=== PATIENT | female | born 1955 | race Caucasian/White ===

== ENCOUNTER → 2016-11-16 | Day surgery (SDC) | payer SELFPAY ==
[2016-11-08 14:37] VITALS: Ht 160 cm; Wt 81.8 kg
[~2016-11-16] VITALS: Ht 160 cm; Wt 81.8 kg
[~2016-11-16] MED LIST: ACYC400T PO; AMOX875T PO; ASCA500 PO; ATV/1 PO; DEXL60CA4 PO; HYDR25TA4 PO; LIDOCAINE HCL 2% 2 ML VIAL (20MG/ML) ONE; MECL1TAB42 PO; MIRT30TA2 PO; ONDA4TAB10 SL; PANT40TA PO; PROPOFOL IV EMULSION 10 MG/ML 20 ML VIAL IV ONE; SODIUM CHLORIDE 0.9% 500ML 500 ML IV ONE; WHEAPOW PO
--- NOTE | 2016-11-16 09:11 | Endo History and Physical ---
History & Physical Date of Service: November 16, 2016. Chief Complaint: HISTORY OF COLON CANCER, 1YR FOLLOW UP Referring Physician: DR DICKSON History of Present Illness 61 yo CF who presents for colonoscopy secondary to history of colon cancer. Past Surgical History Hx Cardiac Surgery: No Hx Internal Defibrillator: No Hx Pacemaker: No Hx Abdominal Surgery: Yes ( X2) Hx of Implantable Prosthesis: No Hx Post-Op Nausea and Vomiting: No Hx Cancer Surgery: Yes (COLON RESECTION) Hx Thoracic Surgery: No Hx Orthopedic: No Hx Urinary Tract Surgery: No Family History None Social History Smoking Status: Never Smoker Hx Substance Use: No Hx Alcohol Use: No Allergies Coded Allergies: Latex1 -Allergic Contact Dermititis (Verified Allergy, Mild, RASH, 11/16/16) Azithromycin (Verified Adverse Reaction, Intermediate, nausea, 11/16/16) Erythromycin (Unverified Adverse Reaction, Intermediate, nausea,abd pain, 11/16/16) Current Medications Reported Home Medications Medications Dose Route/Sig Max Daily Dose Days Date Category Benefiber Drink Mix (Wheat Dextrin) 1 Pow Pow 2 Tsp PO DAILY 11/08/16 Reported Vitamin C (Ascorbic Acid) 500 Mg Tab 1,000 Mg PO QAM 11/08/16 Reported Acyclovir 400 Mg Tab 1 Tab PO BID 11/08/16 Reported Hctz (Hydrochlorothiazide) 25 Mg Tab 25 Mg PO QAM 11/08/16 Reported Remeron Soltab (Mirtazapine) 30 Mg Soltab 30 Mg PO HS 12/01/15 Reported Protonix (Pantoprazole Sodium) 40 Mg Tab 40 Mg PO QAM 12/01/15 Reported Ativan (Lorazepam) 1 Mg Tab 1 Mg PO BID 12/01/15 Reported Vital Signs Weight (Kilograms): 81.82 Height (Feet): 5 Height (Inches): 3 Date Time Temp Pulse Resp B/P Pulse Ox O2 Delivery O2 Flow Rate FiO2 11/16/16 08:43 36.7 84 20 132/99 97 Room Air Physical Exam General Appearance: WD/WN, no apparent distress Respiratory/Chest: Auscultation: breath sounds normal Cardiovascular: Heart Auscultation: RRR Abdomen: Bowel Sounds: normal Inspection & Palpation: soft, non-distended, no tenderness, guarding & rebound Assessment and Plan Assessment: 61 yo CF who presents for colonoscopy secondary to history of colon cancer. Plan: Proceed with colonoscopy.
--- NOTE | 2016-11-16 09:28 | Discharge Instructions ---
Endoscopy Patient Instructions Date / Procedure(s) Performed November 16, 2016. Colonoscopy Allergy Information Coded Allergies: Latex1 -Allergic Contact Dermititis (Verified Allergy, Mild, RASH, 11/16/16) Azithromycin (Verified Adverse Reaction, Intermediate, nausea, 11/16/16) Erythromycin (Unverified Adverse Reaction, Intermediate, nausea,abd pain, 11/16/16) Discharge Date / Findings November 16, 2016. Colon polyps Rectal polyp Internal hemorrhoids Medication Instructions OK to resume all medications today as prescribed Reported Home Medications Medications Dose Route/Sig Max Daily Dose Days Date Category Benefiber Drink Mix (Wheat Dextrin) 1 Pow Pow 2 Tsp PO DAILY 11/08/16 Reported Vitamin C (Ascorbic Acid) 500 Mg Tab 1,000 Mg PO QAM 11/08/16 Reported Acyclovir 400 Mg Tab 1 Tab PO BID 11/08/16 Reported Hctz (Hydrochlorothiazide) 25 Mg Tab 25 Mg PO QAM 11/08/16 Reported Remeron Soltab (Mirtazapine) 30 Mg Soltab 30 Mg PO HS 12/01/15 Reported Protonix (Pantoprazole Sodium) 40 Mg Tab 40 Mg PO QAM 12/01/15 Reported Ativan (Lorazepam) 1 Mg Tab 1 Mg PO BID 12/01/15 Reported Provider Instructions Activity Restrictions - No exercising or heavy lifting for 24 hours. - Do not drink alcohol the day of the procedure. - Do not drive a car or operate machinery until the day after the procedure. - Do not make any important decisions or sign important papers in 24 hours after the procedure. Following Day: - Return to full activity which may include returning to work/school. Diet Start your diet with liquids and light foods (jello, soup, juice, toast). Then eat your usual diet if not nauseated. Treatment For Common After Affects For mild abdominal pain, bloating, or excessive gas: - Rest - Eat lightly - Lie on right side Follow-Up Information Follow-up with DR DICKSON as scheduled Anesthesia Information What You Should Know You have had a procedure that required some medicine to reduce anxiety and discomfort. This treatment is called moderate sedation. After receiving the treatment, you may be sleepy, but you will be able to breathe on your own. The effects of the treatment may last for several hours. Follow these instructions along with Activity/Diet recommendations noted above: * Do NOT do anything where dizziness or clumsiness would be dangerous. * Rest quietly at home today, then you can be up and about tomorrow. * Have a responsible person stay with you the rest of today. * You may have had an I.V. today. If so, you may take the dressing off later today. Recommendations Call your doctor if: * Trouble breathing * Continuous vomiting for more than 24 hours * Temperature above 101 degrees * Severe abdominal pain or bloating * Pain not relieved by pain medicine ordered * There is increased drainage or redness from any incision * A large amount of rectal bleeding greater than 2-3 tablespoons. (If you had a polyp/s removed or have hemorrhoids, a small amount of blood - from the rectum is to be expected.) * You have any unanswered questions or concerns. IN THE EVENT OF A SERIOUS EMERGENCY, GO TO THE NEAREST EMERGENCY ROOM Your discharge instructions were prepared by provider Shashi Yeager. Patient Instructions Signature Page Lisa Beavers Patient (or Guardian) Signature/Date: I have read and understand the instructions given to me by my caregivers. Caregiver/RN/Doctor Signature/Date: The above-named patient and/or guardian has received patient instructions on this date. + Original Patient Signature Page (only) stays with chart. Please make copy for patient.
--- NOTE | 2016-11-16 09:36 | GI REPORT ---
Procedure Date: 11/16/2016 8:52 AM Procedure: Colonoscopy Indications: High risk colon cancer surveillance: Personal history of colon cancer Medicines: Monitored Anesthesia Care Complications: No immediate complications. Estimated Blood Loss: Estimated blood loss: none. Procedure: Pre-Anesthesia Assessment: - Prior to the procedure, a History and Physical was performed, and patient medications and allergies were reviewed. The patient's tolerance of previous anesthesia was also reviewed. The risks and benefits of the procedure and the sedation options and risks were discussed with the patient. All questions were answered, and informed consent was obtained. Prior Anticoagulants: The patient has taken no previous anticoagulant or antiplatelet agents. ASA Grade Assessment: II - A patient with mild systemic disease. After reviewing the risks and benefits, the patient was deemed in satisfactory condition to undergo the procedure. After I obtained informed consent, the scope was passed under direct vision. Throughout the procedure, the patient's blood pressure, pulse, and oxygen saturations were monitored continuously. The Scope was introduced through the anus and advanced to the terminal ileum. The colonoscopy was performed without difficulty. The patient tolerated the procedure well. The quality of the bowel preparation was good. The terminal ileum, ileocecal valve, appendiceal orifice, and rectum were photographed. Findings: Three sessile polyps were found in the rectum and in the ascending colon. The polyps were 5 to 9 mm in size. These polyps were removed with a hot snare. Resection and retrieval were complete. There was evidence of a prior end-to-side colo-colonic anastomosis in the descending colon. This was patent and was characterized by healthy appearing mucosa. The anastomosis was traversed. Non-bleeding internal hemorrhoids were found during retroflexion. The hemorrhoids were small. Impression: - Three 5 to 9 mm polyps in the rectum and in the ascending colon, removed with a hot snare. Resected and retrieved. - Patent end-to-side colo-colonic anastomosis, characterized by healthy appearing mucosa. - Non-bleeding internal hemorrhoids. Recommendation: - Resume previous diet. - Continue present medications. - Repeat colonoscopy for surveillance based on pathology results. - Return to primary care physician as previously scheduled. Shashi Yeager DO 11/16/2016 9:35:26 AM This report has been signed electronically. Note Initiated On: 11/16/2016 8:52 AM I attest to the content of the Intraoperative Record and orders documented therein, exceptions below
[2016-11-16 10:00] VITALS: BP 115/73; PULSE 67; O2SAT 97
--- NOTE | 2016-11-16 10:18 | Anesthesiology Progress Note ---
Anesthesia Post Op Note Date & Time November 16, 2016 at 10:17 Vital Signs Pain Intensity: 0 Vital Signs Past 12 Hours Date Time Temp Pulse Resp B/P Pulse Ox O2 Delivery O2 Flow Rate FiO2 11/16/16 10:00 67 20 115/73 97 Room Air 11/16/16 09:45 70 20 124/67 97 Room Air 11/16/16 09:32 36.4 64 20 110/69 97 Room Air 11/16/16 08:43 36.7 84 20 132/99 97 Room Air Notes Mental Status: alert / awake / arousable, participated in evaluation Pt Amnestic to Procedure: Yes Nausea / Vomiting: adequately controlled Pain: adequately controlled Airway Patency, RR, SpO2: stable & adequate BP & HR: stable & adequate Hydration State: stable & adequate Anesthetic Complications: no major complications apparent
== END | disposition home or self-care (01) ==
LOC: C.GI 08:14
PROVIDERS: ATTEND Internal Medicine
DX: Z12.11 Encounter for screening for malignant neoplasm of colon (principal); D12.2 Benign neoplasm of ascending colon; D12.8 Benign neoplasm of rectum; K64.8 Other hemorrhoids; Z85.038 Personal history of other malignant neoplasm of large intestine

== ENCOUNTER 2016-12-31 19:51 | Emergency (ER) | payer SELFPAY ==
[~2016-12-31] VITALS: Ht 160 cm; Wt 84.6 kg
[~2016-12-31 19:51] MED LIST changes: -AMOX875T PO; -DEXL60CA4 PO; -LIDOCAINE HCL 2% 2 ML VIAL (20MG/ML) ONE; -MECL1TAB42 PO; -ONDA4TAB10 SL; -PROPOFOL IV EMULSION 10 MG/ML 20 ML VIAL IV ONE; -SODIUM CHLORIDE 0.9% 500ML 500 ML IV ONE
[2016-12-31 19:55] VITALS: TEMP 36.7; Ht 160 cm; Wt 84.6 kg
[2016-12-31] MEDS ORDERED: ALBUT/IPRATROP 3MG/0.5MG NEB 3 ML VIAL INH STA (20:08)
--- NOTE | 2016-12-31 20:10 | EMERGENCY ROOM VISIT NOTE ---
History Report prepared by Guy: Anabella Lagunas Under the Supervision of: Dr. Otto Cox D.O. First contact with patient: 19:58 Chief Complaint: ILLNESS Stated Complaint: COUGH,SORE THROAT,WEAKNESS,FEVER,CHILLS History of Present Illness The patient is a 61 year old female who presents to the Emergency Room with complaints of persistent flu like symptoms for the past 3 days. She is accompanied by her . She reports her symptoms started 3 days ago with a scratchy throat and low grade fever. Her symptoms have progressed and she now has a cough, chills and generalized weakness. Ibuprofen has provided minimal relief. Her cough is non-productive and she denies any hemoptysis. She does have significant rhinorrhea and sinus congestion. The patient has no current PCP and states she sees [facility] as needed. She denies any history of PE or DVT. She does admit to a history of colon cancer. Source of History: patient Onset: 3 days [employer]IVE [employer] Position: other (global) Timing: other (persistent) Modifying Factors (Relieving): ibuprofen Associated Symptoms: + fevers, + chills, + sorethroat, + cough, + weakness Review of Systems See HPI for pertinent positives & negatives. A total of 10 systems reviewed and were otherwise negative. Past Medical & Surgical Medical Problems: (1) Colon cancer Surgical Problems: (1) Previous section Family History No pertinent family history Social History Smoking Status: Current Every Day Smoker Alcohol Use: none Drug Use: none Marital Status: Housing Status: lives with family Occupation Status: retired Current/Historical Medications Scheduled Acyclovir (Acyclovir), 1 TAB PO BID Amoxicillin & Pot Clavulanate (Augmentin 875-125 mg), 875 MG PO BID Ascorbic Acid (Vitamin C), 1,000 MG PO QAM Hydrochlorothiazide (Hctz), 25 MG PO QAM Lorazepam (Ativan), 1 MG PO BID Mirtazapine Soltab (Remeron Soltab), 30 MG PO HS Pantoprazole (Protonix), 40 MG PO QAM Wheat Dextrin (Benefiber Drink Mix), 2 TSP PO DAILY Allergies Coded Allergies: Latex1 -Allergic Contact Dermititis (Verified Allergy, Mild, RASH, 11/16/16) Azithromycin (Verified Adverse Reaction, Intermediate, nausea, 11/16/16) Erythromycin (Unverified Adverse Reaction, Intermediate, nausea,abd pain, 11/16/16) Physical Exam Vital Signs Date Time Temp Pulse Resp B/P (MAP) Pulse Ox O2 Delivery O2 Flow Rate FiO2 12/31/16 20:56 78 18 142/85 99 Room Air 12/31/16 20:53 78 18 142/85 99 Room Air 12/31/16 20:37 81 18 100 Nebulizer 12/31/16 19:55 36.7 79 18 96 Room Air Physical Exam GENERAL: Patient is awake, alert, in no acute distress, patient is resting comfortably and showing no signs of anxiety EYES: The conjunctivae are clear. The pupils are round and reactive. EARS, NOSE, MOUTH AND THROAT: The nose is without any evidence of any deformity. Mucous membranes are dry, tongue is midline. TM's clear bilaterally. Mild erythema in the posterior oropharynx but no swelling noted. NECK: Supple, no anterior tenderness noted, but bilateral anterior cervical adenopathy appreciated. RESPIRATORY: Normal respiratory effort is noted there is no evidence of wheezing rhonchi or rales CARDIOVASCULAR: Regular rate and rhythm noted there no murmurs rubs or gallops normal S1 normal S2 GASTROINTESTINAL: The abdomen is soft. Bowel sounds are present in all quadrants. Abdomen is nontender MUSCULOSKELETAL/EXTREMITIES: There is no evidence of gross deformity full range of motion is noted in the hips and shoulders SKIN: There is no obvious evidence of any rash. There are no petechiae, pallor or cyanosis noted. NEUROLOGIC: Patient is awake alert and oriented x3 Medical Decision & Procedures ER Provider Diagnostic Interpretation: Radiology results as stated below per my review and radiologist interpretation: CHEST 2 VIEWS ROUTINE CLINICAL HISTORY: cough dyspnea COMPARISON STUDY: 12/06/2015 FINDINGS: The bones soft tissues and hemidiaphragms are normal. The cardiomediastinal silhouette is normal. The lungs are clear. The pulmonary vasculature is normal. IMPRESSION: Negative chest. Electronically signed by: Dmitri Zhu M.D. 12/31/2016 8:33 PM Medications Administered Medications (Trade) Dose Ordered Sig/Jefry Route Start Time Stop Time Status Last Admin Dose Admin Albuterol/ Ipratropium (Duoneb) 3 ml NOW STAT INH 12/31/16 20:08 12/31/16 20:10 DC 12/31/16 20:25 3 ML Amoxicillin/ Clavulanate Potassium (Augmentin 875MG Home Pack) 1 homepack UD ONCE PO 12/31/16 21:00 12/31/16 21:01 DC 12/31/16 21:17 1 HOMEPACK Amoxicillin/ Clavulanate Potassium (Augmentin Tab) 875 mg NOW ONCE PO 12/31/16 21:00 12/31/16 21:01 DC 12/31/16 21:17 875 MG ED Course 2003: The patient was evaluated in room B4. A complete history and physical examination were performed. 2008: DuoNeb 3 ml INH. 2100: Augmentin Tab 875 mg PO, Augmentin 875 mg 1 homepack PO. 2114: I reevaluated the patient. She is feeling much better. I discussed her results and discharge instructions and she verbalized complete understanding and agreement. Medical Decision Medication Reconciliation: I attest that I have personally reviewed the patient' s current medications list. Blood pressure screening: Patient was found to have an elevated blood pressure and was referred to their primary doctor for recheck and further treatment. Prior records/ancillary studies reviewed. Triage Nursing notes reviewed. The patient's history was concerning for fever. Differential diagnosis: Etiologies such as viral syndrome, otitis, pharyngitis, pneumonia, influenza, meningitis, urinary tract infection, sepsis, bacteremia, as well as others were entertained. The patient is a 61-year-old female who presented to the emergency department for an evaluation of facial pain and sore throat. She also noticed cough recently. The patient thought she may have an infection and specifically asked if she could have pneumonia or sinusitis. These appear to be do to maintain concerns the patient had. The patient's chest x-ray did not show any definite signs of pneumonia and her initial rapid strep was negative. I discussed the patient's laboratory and radiographic studies with her. She was started on antibiotic at her request. I do feel that the patient's limited follow-up may lend itself to better outcome if the patient is prescribed an antibiotic at this time. I discussed the patient's Impression Primary Impression: Sinusitis Scribe Attestation The scribe's documentation has been prepared under my direction and personally reviewed by me in its entirety. I confirm that the note above accurately reflects all work, treatment, procedures, and medical decision making performed by me. Departure Information Dispostion Home / Self-Care Prescriptions Amoxicillin & Pot Clavulanate (Augmentin 875-125 mg) 1 Tab Tab 875 MG PO BID for 7 Days, #14 TAB Prov: Otto Cox, DO 12/31/16 Referrals No Doctor, Assigned (PCP) Patient Instructions My [facility], Sinusitis Acute Additional Instructions Continue to use Motrin and Tylenol as directed for body aches and fever. Drink plenty of clear liquids. Consider using a saline nasal spray as instructed. Follow-up with your doctor soon as possible. Problem Qualifiers Primary Impression: Sinusitis Sinusitis location: unspecified location Chronicity: acute Recurrence: not specified as recurrent Qualified Codes: J01.90 - Acute sinusitis, unspecified
--- NOTE | 2016-12-31 20:34 | DIAGNOSTIC IMAGING REPORT ---
CHEST 2 VIEWS ROUTINE CLINICAL HISTORY: cough dyspnea COMPARISON STUDY: 12/06/2015 FINDINGS: The bones soft tissues and hemidiaphragms are normal. The cardiomediastinal silhouette is normal. The lungs are clear. The pulmonary vasculature is normal. IMPRESSION: Negative chest. Electronically signed by: Dmitri Zhu M.D. 12/31/2016 8:33 PM Dictated Date/Time: 12/31/2016 8:33 PM
[2016-12-31] MEDS ORDERED: AMOX875T PO (20:49)
[2016-12-31 20:56] VITALS: BP 142/85; PULSE 78; O2SAT 99
[2016-12-31] MEDS ORDERED: AMOXICIL/CLAVU 875MG HOME PACK PO ONE (21:00)
[2016-12-31] MEDS ORDERED: AMOXICILLIN/CLAVULANATE TAB 875 MG TAB PO ONE (21:00)
--- NOTE | 2017-01-04 17:36 | Pharmacy Progress Note ---
ED Pharmacist Culture FollowUp Date of Service: Jan 04, 2017. Patient called requesting a change from Augmentin to a different antibiotic for her sinusitis 2nd diarrhea possibly due to Augmentin. Patient reports one episode of diarrhea earlier today. Counseled that all antibiotics can cause diarrhea, but that Augmentin may be a bigger culprit. Therefore, spoke w Dr. Cox who OK'd change to doxycycline. Spoke with Lisa about switch to doxycycline, who was hesitant to switch as recalled she may have had an allergic reaction to it in the past (rash), but does not recall if it was actually doxycycline. Of note, she only has listed allergies to azithromycin, erythromycin, and latex. She requested a switch to Bactrim, which she had tolerated in the past. I counseled that Bactrim is not a recommended therapy for sinusitis and that was unfortunately not a good option in this case. Lisa therefore decided to continue on Augmentin for the time being.
== END 2016-12-31 21:22 | disposition home or self-care (01) ==
LOC: C.EDB 19:54
DX: J01.90 Acute sinusitis, unspecified (principal); C18.9 Malignant neoplasm of colon, unspecified; F17.200 Nicotine dependence, unspecified, uncomplicated

== ENCOUNTER 2017-04-22 20:07 | Emergency (ER) | payer SELFPAY ==
[~2017-04-22] VITALS: Ht 160 cm; Wt 84.9 kg
[2017-04-22 20:11] VITALS: TEMP 36.6; Ht 160 cm; Wt 84.9 kg
[2017-04-22 20:42] VITALS: O2SAT 95
[2017-04-22] MEDS ORDERED: ONDANSETRON 8 MG/54 ML D5W IV STA (21:05)
[2017-04-22] MEDS ORDERED: SODIUM CHLORIDE 0.9% 1000ML 1,000 ML IV STA (21:05)
[2017-04-22] MEDS ORDERED: DIAZEPAM INJ 5 MG/ML 2 ML CARP IV STA (21:05)
[2017-04-22] MEDS ORDERED: MECLIZINE HCL 25 MG TAB PO STA (21:05)
[2017-04-22] MEDS ORDERED: DEXL60CA4 PO (21:07)
--- NOTE | 2017-04-22 21:10 | EMERGENCY ROOM VISIT NOTE ---
History Report prepared by Guy: Charlie Wheeler Under the Supervision of: Dr. Iftikhar Rosas M.D. First contact with patient: 20:24 Chief Complaint: DIZZY Stated Complaint: DIZZY,NAUSEA,OFF BALANCE History of Present Illness The patient is a 62 year old female who presents to the Emergency Room with complaints of intermittent dizzy for the past week. The patient states that she gets this dizziness with changing positions and with head movement, and she states that it feels like the room is spinning. She states that these episodes only last around 7 minutes, and it helps when she sits down. The patient additionally is complaining of nausea, tingling in her hands, and buzzing in her ears which is more chronic. She states that she has never had this before, however she gets motion sickness. The patient additionally notes that she had colon cancer and a colon resection, and she states that she takes lorazepam twice daily. Pt denies LOC, headache, fevers, chills, diaphoresis, visual changes, neck pain, chest pain, breathing difficulties, vomiting, abdominal pain , back pain, melena, hematochezia, urinary symptoms, numbness, weakness, lymphadenopathy, rash, or other complaints. Source of History: patient Onset: a week ago Position: other (global) Quality: other (dizziness) Timing: intermittent Associated Symptoms: + nausea Review of Systems See HPI for pertinent positives and negatives. A total of ten systems were reviewed and were otherwise negative. Past Medical & Surgical Medical Problems: (1) Colon cancer Surgical Problems: (1) Previous section Family History No pertinent family history Social History Smoking Status: Former Smoker Alcohol Use: none Drug Use: none Marital Status: Housing Status: lives with family Occupation Status: retired Current/Historical Medications Scheduled Acyclovir (Acyclovir), 1 TAB PO BID Ascorbic Acid (Vitamin C), 1,000 MG PO QAM Dexlansoprazole (Dexilant), 60 MG PO DAILY Hydrochlorothiazide (Hctz), 25 MG PO QAM Lorazepam (Ativan), 1 MG PO BID Mirtazapine Soltab (Remeron Soltab), 30 MG PO HS Ondasetron Odt (Zofran Odt), 4 MG SL Q6H Scheduled PRN Meclizine Hcl (Meclizine Hcl), 25 MG PO TID PRN for Dizziness Allergies Coded Allergies: Latex1 -Allergic Contact Dermititis (Verified Allergy, Mild, RASH, 04/22/17 ) Azithromycin (Verified Adverse Reaction, Intermediate, nausea, 04/22/17) Erythromycin (Unverified Adverse Reaction, Intermediate, nausea,abd pain, 04/22/17) Physical Exam Vital Signs Date Time Temp Pulse Resp B/P (MAP) Pulse Ox O2 Delivery O2 Flow Rate FiO2 04/22/17 22:30 77 18 130/90 96 04/22/17 21:02 70 04/22/17 20:42 95 Room Air 04/22/17 20:42 77 139/83 82 147/90 90 139/93 04/22/17 20:11 36.6 83 18 150/100 98 Room Air Physical Exam GENERAL: Awake, alert, well appearing, no distress HENT: Normocephalic, atraumatic. TM's normal. Oropharynx unremarkable. EYES: PERRL. EOMI. Normal conjunctiva. Sclera non-icteric. NECK: Supple. No nuchal rigidity. FROM. No JVD or bruit. RESPIRATORY: CTA CARDIAC: RRR. No murmur. ABDOMEN: Soft, non distended. No tenderness to palpation. No rebound or guarding. No masses. RECTAL: Deferred. MUSCULOSKELETAL: Unremarkable. No edema. No discoloration. Gross motor strength symmetric. NEURO: Cranial nerves 2-12 grossly intact. Normal sensorium. No sensory or motor deficits noted. Speech normal. No pronator drift. . SKIN: No rash or jaundice noted. LYMPH: No adenopathy. Medical Decision & Procedures ER Provider Diagnostic Interpretation: Radiology results as stated below per my review and radiologist interpretation: HEAD WITHOUT CONTRAST (CT) CLINICAL HISTORY: 62 years-old Female with DIZZINESS. Acute dizziness and nausea TECHNIQUE: Multiple axial CT images of the head were obtained without contrast. A dose lowering technique was utilized adhering to the principles of ALARA. CT DOSE: 537.48 mGy.cm COMPARISON: None. FINDINGS: No acute intracranial hemorrhage, midline shift, mass, large territorial ischemia or abnormal extra-axial collection. Mild bifrontal cerebral atrophy. The calvarium is intact. The paranasal sinuses, mastoid air cells, and middle ear cavities are clear. A few foci of deep tissue air noted within the soft tissues of the right infratemporal fossa, likely venous air emboli from IV access. No definite soft tissue injury identified within this region. IMPRESSION: No acute intracranial abnormality. The above report was generated using voice recognition software. It may contain grammatical, syntax or spelling errors. Electronically signed by: Iker Espinosa M.D. 04/22/2017 9:43 PM Dictated Date/Time: 04/22/2017 9:40 PM Laboratory Results 04/22/17 20:35 Red Blood Count 4.89, Mean Corpuscular Volume 86.5, Mean Corpuscular Hemoglobin 30.5, Mean Corpuscular Hemoglobin Concent 35.2, Mean Platelet Volume 11.1, Neutrophils (%) (Auto) 55.3, Lymphocytes (%) (Auto) 36.0, Monocytes (%) (Auto) 6.0, Eosinophils (%) (Auto) 2.0, Basophils (%) (Auto) 0.6, Neutrophils # (Auto) 5.12, Lymphocytes # (Auto) 3.34, Monocytes # (Auto) 0.56, Eosinophils # (Auto) 0.19, Basophils # (Auto) 0.06 04/22/17 20:35 Test 04/22/17 20:35 White Blood Count 9.28 K/uL (4.8-10.8) Red Blood Count 4.89 M/uL (4.2-5.4) Hemoglobin 14.9 g/dL (12.0-16.0) Hematocrit 42.3 % (37-47) Mean Corpuscular Volume 86.5 fL (80-100) Mean Corpuscular Hemoglobin 30.5 pg (25-34) Mean Corpuscular Hemoglobin Concent 35.2 g/dl (32-36) Platelet Count 273 K/uL (130-400) Mean Platelet Volume 11.1 fL (7.4-10.4) Neutrophils (%) (Auto) 55.3 % Lymphocytes (%) (Auto) 36.0 % Monocytes (%) (Auto) 6.0 % Eosinophils (%) (Auto) 2.0 % Basophils (%) (Auto) 0.6 % Neutrophils # (Auto) 5.12 K/uL (1.4-6.5) Lymphocytes # (Auto) 3.34 K/uL (1.2-3.4) Monocytes # (Auto) 0.56 K/uL (0.11-0.59) Eosinophils # (Auto) 0.19 K/uL (0-0.5) Basophils # (Auto) 0.06 K/uL (0-0.2) RDW Standard Deviation 43.0 fL (36.4-46.3) RDW Coefficient of Variation 13.6 % (11.5-14.5) Immature Granulocyte % (Auto) 0.1 % Immature Granulocyte # (Auto) 0.01 K/uL (0.00-0.02) Anion Gap 6.0 mmol/L (3-11) Est Creatinine Clear Calc Drug Dose 56.1 ml/min Estimated GFR () 63.2 Estimated GFR (Non- 54.5 BUN/Creatinine Ratio 8.1 (10-20) Calcium Level 9.4 mg/dl (8.5-10.1) Thyroid Stimulating Hormone (TSH) 1.240 uIu/ml (0.300-4.500) Laboratory results reviewed by me Medications Administered Medications (Trade) Dose Ordered Sig/Jefry Route Start Time Stop Time Status Last Admin Dose Admin Diazepam (Valium Inj) 5 mg NOW STAT IV 04/22/17 21:05 04/22/17 21:07 DC 04/22/17 21:19 5 MG Meclizine HCl (Antivert Tab) 25 mg NOW STAT PO 04/22/17 21:05 04/22/17 21:07 DC 04/22/17 21:19 25 MG Sodium Chloride 1,000 ml @ 999 mls/hr Q1H1M STAT IV 04/22/17 21:05 04/22/17 22:05 DC 04/22/17 21:19 999 MLS/HR Ondansetron HCl (Zofran 8mg Iv) 8 mg NOW STAT IV 04/22/17 21:05 04/22/17 21:07 DC 04/22/17 21:19 8 MG ECG Indication: other (dizziness) Rate (beats per minute): 69 Rhythm: normal sinus Findings: no acute ischemic change, no ectopy ED Course 2030: The patient was evaluated in room A3. A complete history and physical exam was performed. 2104: Zofran 8mg IV, Sodium Chloride 1000 ml @ 999 mls/hr IV, Antivert Tab 25mg PO, Valium Inj 5mg IV 2156: I reevaluated the patient. Discussed results and discharge instructions: She verbalized understanding and agreement. The patient is ready for discharge. 2215: Zofran ODT 4mg Home Pack PO, Antivert 25mg Home Pack PO Medical Decision Prior records/ancillary studies reviewed. Triage Nursing notes reviewed and agree them. The patient's history was concerning for dizziness. Differential diagnosis: Etiologies such as benign positional vertigo, tumor, infection, hypoglycemia, electrolyte abnormalities, cardiac sources, intracerebral event, toxicologic, neurologic, as well as others were entertained. Physical examination: As above. No pathologic nystagmus. Negative HINT examination. ER treatment provided: IV hydration over one hour IV Valium 5 mg IV Zofran 8 mg Oral meclizine 25 mg On reassessment the patient felt well. Diagnostics interpretation by me: ECG: Normal sinus rhythm without ischemic change or evidence of dysrhythmia. The labs revealed a normal CBC and chemistry panel. CT imaging was negative. Orthostatic and neurologic examination was negative. It appears the patient had an episode of benign -positional vertigo. By the evaluation outlined above emergent etiologies such as infection, hypoglycemia, electrolyte abnormalities, cardiac sources, intracerebral event, toxicologic, neurologic,as well as others were deemed relatively unlikely. The patient and significant other were informed about the findings as listed above. All questions were answered and they were pleased with the treatment. Return instructions were outlined and the patient was discharged in stable condition. Outpatient prescription management: Meclizine Zofran Referral: The patient was referred back to her primary care physician for follow-up in 2 to 3 days for a recheck of the current condition. The chart was completed utilizing [employer] Speech voice recognition software. Grammatical errors, random word insertions, pronoun errors, and incomplete sentences are an occasional consequence of this system due to software limitations, ambient noise, and hardware issues. Any formal questions or concerns about the content, text, or information contained within the body of this dictation should be directly addressed to the physician for clarification. Medication Reconcilliation Current Medication List: was personally reviewed by me Blood Pressure Screening Patient's blood pressure: Elevated blood pressure Blood pressure disposition: Referred to PCP Impression Primary Impression: Dizziness Scribe Attestation The scribe's documentation has been prepared under my direction and personally reviewed by me in its entirety. I confirm that the note above accurately reflects all work, treatment, procedures, and medical decision making performed by me. Departure Information Dispostion Home / Self-Care Prescriptions Meclizine Hcl (MECLIZINE HCL) 25 Mg Tab 25 MG PO TID Y for Dizziness, #21 TAB Prov: Iftikhar Rosas MD 04/22/17 Ondasetron Odt (ZOFRAN ODT) 4 Mg Tab 4 MG SL Q6H for Nausea, #6 TAB Prov: Iftikhar Rosas MD 04/22/17 Referrals No Doctor, Assigned (PCP) Forms HOME CARE DOCUMENTATION FORM, IMPORTANT VISIT INFORMATION Patient Instructions My [facility] Additional Instructions DIZZINESS INSTRUCTIONS: DO NOT drive, drink alcohol, operate machinery, or perform dangerous activities today. You were given medications in the ER that can affect your ability to safely function or operate a vehicle. You should not drive or perform any dangerous activities until your symptoms resolve. Meclizine 25mg: Take 1 pill every 8 hours as needed for dizziness or vertigo. Avoid alcohol, operating machinery or dangerous equipment, working on ladders or roofs, DRIVING, or situations where being under the influence may be dangerous Zofran(odansetron) tablets 4mg: Take one and allow it to dissolve in your mouth every four to six hours as needed for nausea or vomiting. If An episode of dizziness happens take an extra dose of your Ativan 1 mg. Rest and drink plenty of fluids as tolerated. Continue current medications. If you have nausea or vomiting: Once your stomach is settled start with a clear liquid diet (jello, soup broth, etc.) and then advance as tolerated. You should avoid full, heavy meals for about 24 hrs from the time your symptoms resolved. Return to the ER immediately for worsening or persistent dizziness, vomiting, headache, fevers, chest pains, difficulty breathing, black or bloody stools, slurred speech, numbness, weakness, visual changes, worsening of your condition , or as needed. Follow up with your primary physician in 2-3 days for a recheck of your current condition.
[2017-04-22 21:22] LABS: BASO % 0.6 %; BASO ABS # 0.06 K/uL (0-0.2); COMPLETE YES; HEMATOCRIT 42.3 % (37-47); IG% 0.1 %; LYMPH ABS # 3.34 K/uL (1.2-3.4); MEAN CELL VOLUME 86.5 fL (80-100); MEAN CORPUSCULAR HEMOGLOBIN 30.5 pg (25-34); MEAN CORPUSCULAR HGB CONC 35.2 g/dl (32-36); MEAN PLATELET VOLUME 11.1 fL (7.4-10.4); NEUT % 55.3 %; PLATELET COUNT 273 K/uL (130-400); RED BLOOD COUNT 4.89 M/uL (4.2-5.4); WHITE BLOOD COUNT 9.28 K/uL (4.8-10.8)
[2017-04-22 21:23] LABS: BUN/CREATININE RATIO 8.1 (10-20); CALCIUM 9.4 mg/dl (8.5-10.1); CREATININE 1.1 mg/dl (0.60-1.20); POTASSIUM 3.2 mmol/L (3.5-5.1)
[2017-04-22 21:33] LABS: THYROID STIMULATING HORMONE 1.24 uIu/ml (0.300-4.500)
--- NOTE | 2017-04-22 21:45 | DIAGNOSTIC IMAGING REPORT ---
HEAD WITHOUT CONTRAST (CT) CLINICAL HISTORY: 62 years-old Female with DIZZINESS. Acute dizziness and nausea TECHNIQUE: Multiple axial CT images of the head were obtained without contrast. A dose lowering technique was utilized adhering to the principles of ALARA. CT DOSE: 537.48 mGy.cm COMPARISON: None. FINDINGS: No acute intracranial hemorrhage, midline shift, mass, large territorial ischemia or abnormal extra-axial collection. Mild bifrontal cerebral atrophy. The calvarium is intact. The paranasal sinuses, mastoid air cells, and middle ear cavities are clear. A few foci of deep tissue air noted within the soft tissues of the right infratemporal fossa, likely venous air emboli from IV access. No definite soft tissue injury identified within this region. IMPRESSION: No acute intracranial abnormality. The above report was generated using voice recognition software. It may contain grammatical, syntax or spelling errors. Electronically signed by: Iker Espinosa M.D. 04/22/2017 9:43 PM Dictated Date/Time: 04/22/2017 9:40 PM
[2017-04-22] MEDS ORDERED: ONDA4TAB10 SL (22:08)
[2017-04-22] MEDS ORDERED: MECL1TAB42 PO (22:08)
[2017-04-22] MEDS ORDERED: ONDANSETRON HOME PACK 4MG OD TAB PO ONE (22:15)
[2017-04-22] MEDS ORDERED: MECLIZINE HCL 25MG HOME PACK PO ONE (22:15)
[2017-04-22 22:30] VITALS: BP 130/90; PULSE 77; O2SAT 96
== END 2017-04-22 22:31 | disposition home or self-care (01) ==
LOC: C.EDB 20:09 → C.EDA 22:31
DX: R42 Dizziness and giddiness (principal); R11.0 Nausea; Z85.038 Personal history of other malignant neoplasm of large intestine; Z87.891 Personal history of nicotine dependence; Z79.899 Other long term (current) drug therapy

== ENCOUNTER 2022-12-17 10:10 | Inpatient (IN) ==
[2022-12-17] MEDS ORDERED: ONDANSETRON INJ 2 MG/ML 2 ML VIAL IV STA (10:49)
[2022-12-17] MEDS ORDERED: SODIUM CHLORIDE 0.9% 1000ML 1,000 ML IV SCH (11:00)
--- NOTE | 2022-12-17 11:28 | Emergency Department Note ---
History of Present Illness General Chief complaint: Flu Like Symptoms Stated complaint: FEVER, DIARRHEA, LETHARGIC Time Seen by Provider: 12/17/22 10:22 History of Present Illness This 67-year-old female presents today for evaluation of head congestion and not feeling well. She describes generalized fatigue and nausea. She denies any actual vomiting or diarrhea. She feels as though she may start having diarrhea tomorrow or the next day. She states that once she starts with either, "my electrolytes really go". She states she has a at home with COPD who she cares for. He cannot care for her. She came to the ED hoping to be admitted so that someone can care for her. She states she had a fever of 101 yesterday and 102 this morning. She did take some Tylenol this morning. She is currently afebrile. She denies any abdominal pain, cough, shortness of breath, chest pain, or joint pain. No other treatment. She did not take a COVID test at home. No known exposures. Her past medical history includes hypertension, depression, history of colon cancer with previous colectomy and no chemo or radiation. History of vertigo, and GERD. She follows in the cancer [facility] here at [facility]. Home Medications Medication Instructions Recorded Confirmed Type hydrochlorothiazide 25 mg tablet 25 mg PO QAM 11/07/18 12/17/22 History lorazepam 1 mg tablet 1 mg PO BID PRN Anxiety 11/07/18 12/17/22 History omeprazole 40 mg capsule,delayed 40 mg PO QAM 12/18/20 12/17/22 History release potassium chloride 10 mEq 10 meq PO QAM 12/18/20 12/17/22 History tablet,extended release desvenlafaxine succinate 25 mg 25 mg PO DAILY 12/17/22 12/17/22 History tablet,extended release 24 hr (Pristiq) mirtazapine 45 mg tablet 45 mg PO HS 12/17/22 12/17/22 History omega-3 fatty acids-vitamin E 1,000 cap PO DAILY 12/17/22 12/17/22 History 1,000 mg capsule amlodipine 5 mg tablet (Norvasc) 2.5 mg PO QAM #30 tabs 12/20/22 Rx levofloxacin 750 mg tablet 750 mg PO DAILY 5 days #5 tabs 12/20/22 Rx Allergies Allergy/AdvReac Type Severity Reaction Status Date / Time azithromycin AdvReac Intermediate Nausea Verified 12/17/22 11:46 erythromycin base AdvReac Intermediate nausea,abd Unverified 12/17/22 11:46 pain Past Med/Surg History Medical History Anxiety GERD (gastroesophageal reflux disease) History of colon cancer dx 2014; treated surgically Hypertension Hypokalemia Nausea Osteoarthritis Vertigo Weakness Surgical History History of bowel resection History of x 2 History of colonoscopy History of nasal surgery x 3 as a child History of tonsillectomy Family History Other No family history of adverse response to anesthesia No pertinent family history Social History Smoking Status: Never smoker Second Hand Exposure: No; Do You Dip or Chew Tobacco: No; Hx Alcohol Use: Yes Alcohol type: wine Hx Substance Use: No Preferred Language: Cameroonian Communication Ability: Effective Visual Impairment: No Limitations Hearing Ability: Normal Utilization Management Um Nurse Required: No Beliefs That Will Affect Care: None marital status: Current Living Situation: Spouse current occupational status: employed Feels Safe at Home: Yes Assistive Devices: None Review of Systems A total of 10 systems reviewed and were otherwise negative Physical Exam Vital Signs Vital Signs - 24 hr 12/17/22 10:16 12/17/22 11:06 12/17/22 11:13 Temperature 36.8 C Temperature Source Skin Pulse Rate 116 H 102 H Pulse Rate [Right Finger] 92 H Respiratory Rate 20 24 Respiratory Effort / Characteristics Non-Labored Spontaneous Respiratory Depth Normal Respiratory Pattern Regular Blood Pressure 159/85 H Blood Pressure [Right Arm] 139/85 Blood Pressure Mean 109 Blood Pressure Mean [Right Arm] 103 Pulse Oximetry 94 95 Oxygen Delivery Method Room Air Room Air Sepsis Recent Fever Within 48 Hours Yes Sepsis New/Unexplained Change in Mental Status N/A Sepsis Action Taken by Nursing No Action Required 12/17/22 11:30 12/17/22 12:45 Temperature Temperature Source Pulse Rate Pulse Rate [Right Finger] 93 H 90 Respiratory Rate 24 20 Respiratory Effort / Characteristics Non-Labored Respiratory Depth Normal Respiratory Pattern Blood Pressure Blood Pressure [Right Arm] 142/84 H 146/85 H Blood Pressure Mean Blood Pressure Mean [Right Arm] 103 105 Pulse Oximetry 92 93 Oxygen Delivery Method Room Air Room Air Sepsis Recent Fever Within 48 Hours Sepsis New/Unexplained Change in Mental Status Sepsis Action Taken by Nursing General: Well-developed, well-nourished, obese middle-aged female, in no acute distress. Laying on the bed. Alert and oriented. Skin: Warm and dry with good turgor. No rashes or lesions. No ecchymosis or erythema. No edema. HEENT: Normocephalic atraumatic. Eyes PERRLA, EOMI. No conjunctiva or scleral injection. Ears TMs intact bilaterally with good light reflexes. No erythema or bulging. No hemotympanum. Canals are patent. Nares patent bilaterally without turbinate enlargement. No significant drainage. No epistaxis. Oropharynx without erythema or exudate. Uvula midline, oral mucosa moist. No lesions present. Lymphatics are palpated without anterior or posterior chain enlargement or tenderness. Heart: Heart RRR. No MGR. Peripheral pulses are 2+. Lungs: Lungs are clear to auscultation. No crackles rhonchi or wheezing. Good air movement. The patient is able to take a deep breath. Abdomen: Abdomen was inspected, auscultated, and palpated. Obese. Bowel sounds present x 4. Soft, nontender to palpation. No hepato-splenomegaly. No masses noted. No rebound. No CVA tenderness. Musculoskeletal: Gross motor function of the upper and lower extremities is intact and unremarkable. Neurologic: Gross sensation is intact across the upper and lower extremities by soft touch. Course Administered Medications Discontinued Medications Acetaminophen (Acetaminophen 325 Mg Tab) 650 mg PO Q4H PRN PRN Reason: Pain or Fever Stop: 01/16/23 13:22 Last Admin: 12/19/22 10:07 Dose: 650 mg Documented By: ALMA DELIA Admin: 12/18/22 05:57 Dose: 650 mg Documented By: Admin: 12/17/22 21:02 Dose: 650 mg Documented By: Admin: 12/17/22 14:12 Dose: 650 mg Documented By: ALMA DELIA Amlodipine Besylate (Amlodipine Besylate 5 Mg Tab) [facility] [place]: 01/19/23 08:59 Last Admin: 12/20/22 09:47 Dose: 2.5 mg Documented By: PRUDENCE Azithromycin (Azithromycin 250 Mg Tab) 500 mg PO NOW ONE Stop: 12/17/22 19:51 Last Admin: 12/17/22 21:11 Dose: Not Given Documented By: TRAVIS Enoxaparin Sodium (Enoxaparin Inj 40 Mg/0.4 Ml Syr) 40 mg SQ QAM [facility] Stop: 01/17/23 08:59 Last Admin: 12/20/22 09:37 Dose: 40 mg Documented By: Admin: 12/19/22 07:45 Dose: 40 mg Documented By: ALMA DELIA Admin: 12/18/22 08:04 Dose: 40 mg Documented By: ALIN Fish Oil ([place]-3 (Purified Fish Oil) 1 Gm Cap) 1 gm PO DAILY LATRICIA Stop: 01/17/23 08:59 Last Admin: 12/20/22 09:36 Dose: 1 gm Documented By: Admin: 12/19/22 07:45 Dose: Not Given Documented By: ALMA DELIA Admin: 12/18/22 08:05 Dose: 1 gm Documented By: ALIN Sodium Chloride (Nss 1000ml) 1,000 mls @ 125 mls/hr IV .Q8H LATRICIA Stop: 01/16/23 10:59 Last Infusion: 12/17/22 14:29 Dose: 0 mls/hr Documented By: ALMA DELIA Admin: 12/17/22 11:18 Dose: 125 mls/hr Documented By: GARETH Ceftriaxone Sodium 2,000 mg/ (Dextrose) 70 mls @ 100 mls/hr IV Q24H LATRICIA; Protocol Stop: 12/22/22 14:29 Last Infusion: 12/17/22 15:48 Dose: 0 mls/hr Documented By: ALMA DELIA Admin: 12/17/22 15:02 Dose: 100 mls/hr Documented By: ALMA DELIA Potassium Chloride/Sodium Chloride (Normal Saline W/20 Meq Kcl) 20 meq in 1,000 mls @ 100 mls/hr IV .Q10H LATRICIA; Protocol Stop: 12/18/22 20:29 Last Infusion: 12/18/22 22:05 Dose: 0 mls/hr Documented By: Admin: 12/18/22 12:31 Dose: 100 mls/hr Documented By: Infusion: 12/18/22 12:29 Dose: 100 mls/hr Documented By: Admin: 12/18/22 02:29 Dose: 100 mls/hr Documented By: Infusion: 12/18/22 01:02 Dose: 100 mls/hr Documented By: Admin: 12/17/22 15:02 Dose: 100 mls/hr Documented By: ALMA DELIA Potassium Chloride (K Micheal / Wtr) 10 meq in 100 mls @ 100 mls/hr IV Q1H LATRICIA Stop: 12/18/22 09:44 Last Infusion: 12/18/22 11:57 Dose: 100 mls/hr Documented By: Admin: 12/18/22 10:57 Dose: 100 mls/hr Documented By: Infusion: 12/18/22 09:00 Dose: 0 mls/hr Documented By: Admin: 12/18/22 08:00 Dose: 100 mls/hr Documented By: ALIN Lactated Ringer's (Lr) 1,000 mls @ 50 mls/hr IV .Q20H LATRICIA Stop: 12/20/22 23:35 Last Infusion: 12/20/22 10:17 Dose: 0 mls/hr Documented By: Infusion: 12/20/22 07:56 Dose: 0 mls/hr Documented By: Admin: 12/20/22 03:31 Dose: 50 mls/hr Documented By: Infusion: 12/20/22 03:31 Dose: 50 mls/hr Documented By: Infusion: 12/19/22 20:04 Dose: 50 mls/hr Documented By: Admin: 12/19/22 12:45 Dose: 80 mls/hr Documented By: ALMA DELIA Ioversol (Optiray 320 100ml) 88 ml IV ONCE ONE Stop: 12/17/22 20:31 Last Admin: 12/17/22 20:31 Dose: 88 ml Documented By: KEITH Levofloxacin (Levofloxacin 750 Mg Tab) 750 mg PO ONE ONE; Protocol Stop: 12/17/22 20:21 Last Admin: 12/17/22 21:02 Dose: 750 mg Documented By: TRAVIS Levofloxacin (Levofloxacin 750 Mg Tab) 750 mg PO DAILY@1100 LATRICIA; Protocol Stop: 12/20/22 10:59 Last Admin: 12/19/22 10:07 Dose: 750 mg Documented By: ALMA DELIA Admin: 12/18/22 12:31 Dose: 750 mg Documented By: ALIN Lorazepam (Lorazepam 1 Mg Tab) 1 mg PO BID PRN PRN Reason: Anxiety Stop: 01/16/23 21:26 Last Admin: 12/20/22 07:35 Dose: 1 mg Documented By: Admin: 12/19/22 19:33 Dose: 1 mg Documented By: Admin: 12/18/22 20:09 Dose: 1 mg Documented By: Admin: 12/18/22 05:57 Dose: 1 mg Documented By: Admin: 12/17/22 21:36 Dose: 1 mg Documented By: TRAVIS Mirtazapine (Mirtazapine Soltab 15 Mg) 45 mg PO HS LATRICIA Stop: 01/16/23 20:59 Last Admin: 12/19/22 20:56 Dose: 45 mg Documented By: Admin: 12/18/22 20:09 Dose: 45 mg Documented By: Admin: 12/17/22 21:02 Dose: 45 mg Documented By: TRAVIS Miscellaneous (Pristiq (Desvenlafaxine)--Order Awaiting Action) 1 each N/A QS LATRICIA Stop: 01/16/23 15:59 Last Admin: 12/20/22 09:38 Dose: Not Given Documented By: Admin: 12/19/22 23:03 Dose: Not Given Documented By: Admin: 12/19/22 15:56 Dose: Not Given Documented By: ALMA DELIA Admin: 12/19/22 07:45 Dose: Not Given Documented By: ALMA DELIA Admin: 12/19/22 01:00 Dose: Not Given Documented By: Admin: 12/18/22 16:26 Dose: Not Given Documented By: Admin: 12/18/22 08:03 Dose: Not Given Documented By: Admin: 12/18/22 00:05 Dose: Not Given Documented By: Admin: 12/17/22 17:18 Dose: Not Given Documented By: ALMA DELIA Ondansetron HCl (Ondansetron Inj 2 Mg/Ml 2 Ml Vial) 4 mg IV NOW STA Stop: 12/17/22 10:50 Last Admin: 12/17/22 11:18 Dose: 4 mg Documented By: GARETH Pantoprazole Sodium (Pantoprazole 40 Mg Tab) 40 mg PO QAM [facility] Stop: 01/17/23 08:59 Last Admin: 12/20/22 09:37 Dose: 40 mg Documented By: Admin: 12/19/22 07:44 Dose: 40 mg Documented By: ALMA DELIA Admin: 12/18/22 08:05 Dose: 40 mg Documented By: ALIN Pantoprazole Sodium (Pantoprazole 40 Mg Tab) 40 mg PO ONE ONE Stop: 12/17/22 16:01 Last Admin: 12/17/22 17:34 Dose: 40 mg Documented By: ALMA DELIA Potassium Chloride (Potassium Chloride Crtab 20 Meq Tabcr) 40 meq PO NOW STA Stop: 12/17/22 14:22 Last Admin: 12/17/22 15:01 Dose: 40 meq Documented By: ALMA DELIA Potassium Chloride (Potassium Chloride Crtab 20 Meq Tabcr) 40 meq PO ONE ONE Stop: 12/18/22 07:41 Last Admin: 12/18/22 08:00 Dose: 40 meq Documented By: ALIN Potassium Phosphate (Pot Phosphate Monobasic W/ Sod Tab) 1 tab PO QID LATRICIA Stop: 12/20/22 08:59 Last Admin: 12/19/22 20:11 Dose: 1 tab Documented By: Admin: 12/19/22 16:42 Dose: 1 tab Documented By: ALMA DELIA Admin: 12/19/22 12:46 Dose: 1 tab Documented By: ALMA DELIA Admin: 12/19/22 07:44 Dose: 1 tab Documented By: ALMA DELIA Admin: 12/18/22 20:09 Dose: 1 tab Documented By: Admin: 12/18/22 16:49 Dose: 1 tab Documented By: Admin: 12/18/22 14:19 Dose: 1 tab Documented By: Admin: 12/18/22 10:56 Dose: 1 tab Documented By: ALIN Zolpidem Tartrate (Zolpidem Tartrate 5 Mg Tab) 5 mg PO NOW STA Stop: 12/19/22 23:19 Last Admin: 12/19/22 23:25 Dose: 5 mg Documented By: CINDY Medical Decision Making Differential Diagnosis Malaise, dehydration, electrolyte abnormality, gastroenteritis, colitis, viral illness Medical Records Attestation: I reviewed the patient's medical records. Home Medications Current Medication List: was personally reviewed by me Laboratory Data CBC, chemistry panel, magnesium, UA, and Cepheid nasal swab were obtained. WBCs are mildly elevated at 12.88. H&H are unremarkable. Sodium 138, potassium 2.7, chloride 96, CO2 32. BUN and creatinine are normal. LFTs are normal. Magnesium is also normal. Nasal swab is negative for COVID, influenza a and B, and RSV. UA shows trace ketones, 1+ leukocytes, no blood or nitrites, significant epithelials and no bacteria. 12/17/22 11:05 12/17/22 11:05 Lab Results 12/17/22 12/17/22 12/17/22 Range/Units 10:59 11:05 11:05 WBC 12.88 H (4.8-10.8) K/ul RBC 5.08 (4.20-5.40) M/uL Hgb 15.1 (12.0-16.0) g/dl Hct 42.5 (37.0-47.0) % MCV 83.7 (80.0-100.0) fL MCH 29.7 (25.0-34.0) pg MCHC 35.5 (32.0-36.0) g/dL RDW Std Deviation 41.4 (36.4-46.3) fL RDW Coeff of Sven 13.5 (11.5-14.5) % Plt Count 252 (130-400) K/uL MPV 10.6 (9.4-12.4) fL Immature Gran % (Auto) 0.6 % Neut % (Auto) 88.8 % Lymph % (Auto) 6.5 % [place] % (Auto) 3.8 % Eos % (Auto) 0.1 % Baso % (Auto) 0.2 % Neut # (Auto) 11.43 H (1.40-6.50) K/uL Lymph # (Auto) 0.84 L (1.2-3.4) K/uL [place] # (Auto) 0.49 (0.11-0.59) K/uL Eos # (Auto) 0.01 (0-0.50) K/uL Baso # (Auto) 0.03 (0-0.2) K/uL Immature Gran # (Auto) 0.08 (0.01-0.20) K/uL Sodium 138 (136-145) mmol/L Potassium 2.7 L (3.5-5.1) mmol/L Chloride 96 L (98-107) mmol/L Carbon Dioxide 32 (21-32) mmol/L Anion Gap 10 (3-11) BUN 13 (6-23) mg/dl Creatinine 1.07 (0.6-1.2) mg/dl Est Cr Clr Drug Dosing 54.2 ml/min Est GFR ( Amer) 63.1 ml/min Est GFR (Non-Af Amer) 54.4 ml/min BUN/Creatinine Ratio 12.1 (10-20) Glucose 130 H (70-99(Fasting)) mg/dl Calcium 9.1 (8.6-10.3) mg/dl Magnesium 1.8 (1.7-2.4) mg/dl Total Bilirubin 0.5 (0.2-1.0) mg/dl AST 25 (13-39) U/L ALT 22 (7-52) U/L Alkaline Phosphatase 76 (34-104) U/L Total Protein 7.7 (6.0-8.3) gm/dl Albumin 4.2 (3.4-5.0) gm/dl Globulin 3.5 (2.5-4.0) gm/dl Albumin/Globulin Ratio 1.2 (0.9-2) Urine Color Urine Appearance (Clear) Urine pH (4.5-7.5) Ur Specific [place] (1.000-1.030) Urine Protein (Negative) Urine Glucose (UA) (Negative) Urine Ketones (Negative) Urine Blood (Negative) Urine Nitrite (Negative) Urine Bilirubin (Negative) Urine Urobilinogen (Negative) Ur Leukocyte Esterase (Negative) Urine WBC (Auto) (0-5) /hpf Urine RBC (Auto) (0-4) /hpf U Hyaline Cast (Auto) (0-5) /lpf U Epithel Cells (Auto) (0-5) /lpf Urine Bacteria (Auto) (Negative) SARS-CoV-2 (PCR) NEGATIVE (Negative) Influenza Type A (PCR) Negative (Neg) Influenza Type B (PCR) Negative (Neg) RSV (RT-PCR) Negative (Neg) 12/17/22 Range/Units 12:07 WBC (4.8-10.8) K/ul RBC (4.20-5.40) M/uL Hgb (12.0-16.0) g/dl Hct (37.0-47.0) % MCV (80.0-100.0) fL MCH (25.0-34.0) pg MCHC (32.0-36.0) g/dL RDW Std Deviation (36.4-46.3) fL RDW Coeff of Sven (11.5-14.5) % Plt Count (130-400) K/uL MPV (9.4-12.4) fL Immature Gran % (Auto) % Neut % (Auto) % Lymph % (Auto) % [place] % (Auto) % Eos % (Auto) % Baso % (Auto) % Neut # (Auto) (1.40-6.50) K/uL Lymph # (Auto) (1.2-3.4) K/uL [place] # (Auto) (0.11-0.59) K/uL Eos # (Auto) (0-0.50) K/uL Baso # (Auto) (0-0.2) K/uL Immature Gran # (Auto) (0.01-0.20) K/uL Sodium (136-145) mmol/L Potassium (3.5-5.1) mmol/L Chloride (98-107) mmol/L Carbon Dioxide (21-32) mmol/L Anion Gap (3-11) BUN (6-23) mg/dl Creatinine (0.6-1.2) mg/dl Est Cr Clr Drug Dosing ml/min Est GFR ( Amer) ml/min Est GFR (Non-Af Amer) ml/min BUN/Creatinine Ratio (10-20) Glucose (70-99(Fasting)) mg/dl Calcium (8.6-10.3) mg/dl Magnesium (1.7-2.4) mg/dl Total Bilirubin (0.2-1.0) mg/dl AST (13-39) U/L ALT (7-52) U/L Alkaline Phosphatase (34-104) U/L Total Protein (6.0-8.3) gm/dl Albumin (3.4-5.0) gm/dl Globulin (2.5-4.0) gm/dl Albumin/Globulin Ratio (0.9-2) Urine Color Yellow Urine Appearance Clear (Clear) Urine pH 6.5 (4.5-7.5) Ur Specific [place] 1.025 (1.000-1.030) Urine Protein 1+ H (Negative) Urine Glucose (UA) Negative (Negative) Urine Ketones Trace H (Negative) Urine Blood Negative (Negative) Urine Nitrite Negative (Negative) Urine Bilirubin Negative (Negative) Urine Urobilinogen Negative (Negative) Ur Leukocyte Esterase 1+ H (Negative) Urine WBC (Auto) 10-30 H (0-5) /hpf Urine RBC (Auto) 5-10 H (0-4) /hpf U Hyaline Cast (Auto) 1-5 (0-5) /lpf U Epithel Cells (Auto) >30 H (0-5) /lpf Urine Bacteria (Auto) Negative (Negative) SARS-CoV-2 (PCR) (Negative) Influenza Type A (PCR) (Neg) Influenza Type B (PCR) (Neg) RSV (RT-PCR) (Neg) Imaging Data My Impression: Chest x-ray obtained today was interpreted by me and read by radiology. It is unremarkable. No pleural effusion or consolidation. Radiologist's Impression: Chest X-Ray 12/17/22 12:19 XR chest 2V PA/lateral HISTORY: 67 years-old Female weakness acute weakness COMPARISON: 11/07/2018 TECHNIQUE: PA and lateral views of the chest FINDINGS: Cardiomediastinal and hilar silhouettes are within normal limits. There is no pneumothorax, pleural effusion, airspace consolidation or pulmonary edema. Bones of the chest appear grossly intact. IMPRESSION: No acute process. ACT 112: Negative or not required by law. The above report was generated using voice recognition software. It may contain grammatical, syntax or spelling errors. Electronically signed by: eGorge Espinosa M.D. 12/17/2022 12:51 PM ECG Data Additional Comments: monitor car operator applied today shows a normal sinus rhythm with a rate in the 90s. EKG obtained today was interpreted by me and read by Dr. Guidry. It shows a sinus rhythm with a rate of 88. No acute ST or T wave changes. When compared to her EKG from October 2018, no significant change was found. Blood Pressure Blood Pressure Findings: Normal blood pressure MDM Narrative The patient was evaluated in room B5. Conservative care measures were discussed. She was placed on a bus monitor. She remained in normal sinus rhythm without ectopy. Rate in the 90s. IV was established. Labs were obtained. EKG was also obtained. It is unremarkable. She was given Zofran 4 mg IV. She was also hydrated with 1 L normal sterile saline at 125 mL/h. She v erbalized feeling better. Chest x-ray was obtained. It is unremarkable. She is hypokalemic and mildly tachycardic. Given her hypokalemia, option of observation was discussed with her. She is agreeable. Hospitalist service was consulted. Please see that dictation for final management. The patient remained stable while in the ED. option of additional imaging, including acute abdominal series was considered. Given that she has no current vomiting or diarrhea, it was deemed unnecessary at this time. The patient was seen in conjunction with Dr. Guidry, who also evaluated the patient and concurred with today's diagnosis and treatment plan. Impression & Plan Hypokalemia, Nausea Admission. Gentle hydration. Potassium replacement. Discharge Plan Visit Data Chief Complaint: Flu Like Symptoms Stated Complaint: FEVER, DIARRHEA, LETHARGIC ED Provider: Gaurav Guidry ED Midlevel Provider: Colin Quiles Discharge Problem: Hypokalemia, Nausea Patient Disposition: Admitted As Inpatient Discharge Instructions Interventions: ED Discharge Assessment Last Done: 12/17/22 13:51
[2022-12-17 11:39] LABS: Basophils # (auto) 0.03 K/uL (0-0.2); Basophils % (auto) 0.2 %; Eosinophils # (auto) 0.01 K/uL (0-0.50); Eosinophils % (auto) 0.1 %; Hematocrit (blood only) 42.5 % (37.0-47.0); Hemoglobin 15.1 g/dl (12.0-16.0); Immature Granulocytes # (auto) 0.08 K/uL (0.01-0.20); Immature Granulocytes % (auto) 0.6 %; Lymphocytes # (auto) 0.84 K/uL (1.2-3.4); Lymphocytes % (auto) 6.5 %; Mean Corpuscular Hemoglobin 29.7 pg (25.0-34.0); Mean Corpuscular Hgb Conc 35.5 g/dL (32.0-36.0); Mean Corpuscular Volume 83.7 fL (80.0-100.0); Mean Platelet Volume 10.6 fL (9.4-12.4); Monocytes # (auto) 0.49 K/uL (0.11-0.59); Monocytes % (auto) 3.8 %; Neutrophils # (auto) 11.43 K/uL (1.40-6.50); Neutrophils % (auto) 88.8 %; Platelet Count 252 K/uL (130-400); RDW Coefficient of Variation 13.5 % (11.5-14.5); RDW Standard Deviation 41.4 fL (36.4-46.3); Red Blood Count 5.08 M/uL (4.20-5.40); White Blood Count 12.88 K/ul (4.8-10.8)
[2022-12-17 11:49] LABS: Albumin Globulin Ratio 1.2 (0.9-2); Albumin Level 4.2 gm/dl (3.4-5.0); BUN Creatinine Ratio 12.1 (10-20); Bilirubin,Total 0.5 mg/dl (0.2-1.0); Calcium 9.1 mg/dl (8.6-10.3); Creatinine Clr Calc Pharmacy 54.2 ml/min; Est GFR (African American) 63.1 ml/min; Est GFR (Non-African American) 54.4 ml/min; Globulin 3.5 gm/dl (2.5-4.0); Potassium 2.7 mmol/L (3.5-5.1); Total Protein 7.7 gm/dl (6.0-8.3)
[2022-12-17 12:07] LABS: Influenza A virus by PCR Negative (Neg); Influenza B virus by PCR Negative (Neg); RSV by PCR Negative (Neg); SARS CoV2 RNA(COVID-19) Ceph NEGATIVE (Negative)
[2022-12-17 12:28] LABS: Appearance Urine Clear (Clear); Bacteria Urine Automated Negative (Negative); Bilirubin Urine Negative (Negative); Blood Urine Negative (Negative); Color Urine Yellow; Epithelial Cell Urine Auto >30 /lpf (0-5); Glucose Urine UA Negative (Negative); Ketones Urine Trace (Negative); Leukocyte Esterase Urine 1+ (Negative); Nitrite Urine Negative (Negative); Protein Urine 1+ (Negative); Specific Gravity Urine 1.025 (1.000-1.030); Urobilinogen Urine Negative (Negative); pH Urine 6.5 (4.5-7.5)
[2022-12-17 12:42] LABS: Magnesium 1.8 mg/dl (1.7-2.4)
--- NOTE | 2022-12-17 12:53 | XRay Report ---
XR chest 2V PA/lateral HISTORY: 67 years-old Female weakness acute weakness COMPARISON: 11/07/2018 TECHNIQUE: PA and lateral views of the chest FINDINGS: Cardiomediastinal and hilar silhouettes are within normal limits. There is no pneumothorax, pleural e ffusion, airspace consolidation or pulmonary edema. Bones of the chest appear grossly intact. IMPRESSION: No acute process. ACT 112: Negative or not required by law. The above report was generated using voice recognition software. It may contain grammatical, syntax o r spelling errors. Electronically signed by: George Espinosa M.D. 12/17/2022 12:51 PM
[2022-12-17] MEDS ORDERED: ONDANSETRON INJ 2 MG/ML 2 ML VIAL IV PRN (13:23)
[2022-12-17] MEDS ORDERED: POLYETHYLENE (MIRALAX) 17 GM PACK PO PRN (13:23)
[2022-12-17] MEDS ORDERED: ALUMINUM/MAGNESIUM SUSP 30 ML UDC PO PRN (13:23)
[2022-12-17] MEDS ORDERED: MAGNESIUM HYDROXIDE SUSP 30 ML UDC PO PRN (13:23)
--- NOTE | 2022-12-17 13:31 | History & Physical Report ---
Date of Service December 17, 2022 Assessment & Plan (1) Weakness: (2) Nausea: (3) Hypertension: (4) Anxiety: (5) GERD (gastroesophageal reflux disease): (6) History of colon cancer: (7) Hypokalemia: Admission and Anticipated Discharge Date Admission Date: 67 y/o presents with fevers, diarrhea, decreased appetite and nausea over past 24 hours. + UTI, started on Ceftriaxone. Hypokalemia 2.7; replacing PO and IV. H/O Colon CA 2015 s/p SBO and partial colectomy; No chemo or radiation; [facility]. Checking stool for infection. Blood, urine and stool cultures pending. UTI: Nausea: Weakness: Suspect weakness r/t UTI Mild leukocytosis: WBC 12.88 Received 1LNSB; will administer 2 more with added KCL at 100mL/hour. Lactate 1.0 CXR negative abdomen/pelvis CT ordered A1C was drawn 12/06 and 6.3 Check blood cultures Start on Ceftriaxone for UTI; adjust as needed based on urine, blood or stool culture. Hypokalemia: Suspect related to diarrhea and decreased PO intake K+ 2.7; no ectopy on ECG or arrhythmia on EKG Mg+ 1.8 Administer 40 PO KCL and add another 20KCL to IVF x2 bags Recheck BMP in AM Diarrhea: Started 24 hours ago Increased malodor No mucus Check C-Diff and stool culture FOBT d/t history of colon CA HTN: Takes HCTZ; continue Depression and Anxiety: Takes Remeron at night; continue Patient was recently (a few weeks ago) started on Pristiq and it appears that side effects include decreased appetite, nausea and diarrhea Patient states she stopped taking Pristiq 48 hours ago; will hold for now Address with outpatient prescriber if no improvement with symptoms GERD: Takes Omeprazole; continue History of Colon cancer: Dx: 2015 s/p SBO and partial colectomy No chemo or radiation Follows at [facility] [place] at [facility]. Due to current stool symptoms and cancer history will do full stool work up Disposition: PCP: Dr. Rosenthal ([place]) Code Status: Full Code VTE Prophylaxis: Lovenox SQ I spent a total of 88 minutes coordinating, documenting, and providing care for this patient excluding time spent in the performance of separately billed services. All of the aforementioned completed while collaborating with the assigned attending physician for a full treatment plan. Please see their addendum for further details. History of Present Illness Chief Complaint: nausea Primary Care Provider: Vivi Rosenthal MD Ms. Beavers is a 67-year-old female who presented to the [facility] ED today with complaints of " just not feeling well". She stated that around 12:00 yesterday she started to feel very tired and dizzy. She reports having a fever over the last 24 hours temperature ranging 101-102.8. She was febrile prior to coming to the ED today and took Tylenol. On arrival in the ED she was afebrile however when I evaluated her she her temperature was 39.6. Overall her appetite has been low over the past few days. She also reports having diarrhea that has started over the past 24 hours and reports that lately her stool has had more malodor presentation than usual. She denies hematochezia. Past medical history includes hypertension, depression, history of colon cancer for which she had a colectomy and no chemo or radiation was necessary, history of vertigo, and GERD. She does follow in the [facility]. Patient denies headache, dizziness, chest pain, palpitations nausea, vomiting, diarrhea, recent falls or trauma, abdominal pain, hematochezia, urinary frequency, bowel changes, visual or auditory changes. Patient was recently (a few wees ago) started on Pristiq and it appears that side effects include decreased appetite, nausea and diarrhea. I was able to evaluate Lisa at bedside and her admitted room and she was febrile 39.6. Patient otherwise did not appear toxic and was able to answer all questions appropriately. No abdominal tenderness or lower extremity swelling noted. Slight leukocytosis 12.2. Hypokalemic 2.7. Otherwise labs unremarkable. biofire negative for flu, COVID, and RSV. CXR negative for cardiopulmonary di sease. Urinalysis suggesting of UTI. She is hemodynamically stable BP 146/85, heart rate 98, respiratory is 20 and is on room air 93%. Patient has a history of colon cancer diagnosed in 2015 status post SBO and partial colectomy. No chemo or radiation was needed however due to her history and bowel symptoms a full work-up is warranted. We will treat UTI with ceftriaxone and await blood, urine, and stool culture results. Patient reports that her is ill at home with COPD and he is unable to care for her. She is ultimately his caregiver. Patient will be admitted for further evaluation and management. Please see A/P for further details. Allergies Allergy/AdvReac Type Severity Reaction Status Date / Time azithromycin AdvReac Intermediate Nausea Verified 12/17/22 11:46 erythromycin base AdvReac Intermediate nausea,abd Unverified 12/17/22 11:46 pain Home Medications Medication Instructions Recorded Confirmed Type hydrochlorothiazide 25 mg tablet 25 mg PO QAM 11/07/18 12/17/22 History lorazepam 1 mg tablet 1 mg PO BID PRN Anxiety 11/07/18 12/17/22 History omeprazole 40 mg capsule,delayed 40 mg PO QAM 12/18/20 12/17/22 History release potassium chloride 10 mEq 10 meq PO QAM 12/18/20 12/17/22 History tablet,extended release desvenlafaxine succinate 25 mg 25 mg PO DAILY 12/17/22 12/17/22 History tablet,extended release 24 hr (Pristiq) mirtazapine 45 mg tablet 45 mg PO HS 12/17/22 12/17/22 History omega-3 fatty acids-vitamin E 1,000 cap PO DAILY 12/17/22 12/17/22 History 1,000 mg capsule Past Med/Surg History Medical History (Updated 12/17/22 @ 13:32 by CJ Camarillo) Anxiety GERD (gastroesophageal reflux disease) History of colon cancer dx 2014; treated surgically Hypertension Hypokalemia Nausea Osteoarthritis Vertigo Weakness Surgical History History of bowel resection History of x 2 History of colonoscopy History of nasal surgery x 3 as a child History of tonsillectomy Family History Other No family history of adverse response to anesthesia No pertinent family history Social History Smoking Status: Never smoker Second Hand Exposure: No; Do You Dip or Chew Tobacco: No; Tobacco Cessation Education Requested by Patient: No Hx Alcohol Use: Yes Alcohol type: wine Hx Substance Use: No Preferred Language: Danish Communication Ability: Effective Visual Impairment: No Limitations Hearing Ability: Normal Orthodontic Band Maker Required: No Beliefs That Will Affect Care: None marital status: Current Living Situation: Spouse current occupational status: employed Other Information That Helps Us Care for You: No Feels Safe at Home: Yes Safety Concerns: Feels Safe At This Time Assistive Devices: Denture - Upper and Glasses Review of Systems Review of Systems: Neuro: (-) Falls, trauma, slurred speech HEENT: (-) CELIS, dizziness, dysphagia, visual or auditory changes (+) chills CV: (-) CP, palpitations, swelling Resp: (-) SOB GI: (-) appetite changes, N/V/D, bowel changes : (-) urinary changes Skin: (-) rashes Psych: (-) anxiety, depression Physical Exam Physical Exam: Neuro: AAOx4, PERRLA, no aphagia, memory changes, CNII-XII grossly intact HEENT: head normocephalic, moist mucus membranes CV: S1/S2, (-) M/G/R, (-) edema, cap refill < 3 seconds Resp: Lungs CTA in all marin. On RA GI: Abdomen S/NT/ND, Ax4 bowel sounds, (-) CVA tenderness Musculoskeletal: 5/5 B/L UE strength, 5/5 B/L LE strength. No gait disturbance Skin: (-) rashes , (-) erythema. Psych: euthymic, but anxious mood Results & Data Results & Data Vital Signs (Past 12 Hours) Vital Signs Temp Pulse Pulse Resp BP BP Pulse Ox 12/17/22 12:45 90 20 146/85 H 93 12/17/22 11:30 93 H 24 142/84 H 92 12/17/22 11:13 92 H 24 139/85 95 12/17/22 11:06 102 H 12/17/22 10:16 36.8 C 116 H 20 159/85 H 94 O2 Del Method 12/17/22 12:45 Room Air 12/17/22 11:30 Room Air 12/17/22 11:13 Room Air 12/17/22 11:06 12/17/22 10:16 Room Air Laboratory Results Short CBC 12/17/22 Range/Units 11:05 WBC 12.88 H (4.8-10.8) K/ul Hgb 15.1 (12.0-16.0) g/dl Hct 42.5 (37.0-47.0) % Plt Count 252 (130-400) K/uL BMP 12/17/22 11:05 Sodium 138 Potassium 2.7 L Chloride 96 L Carbon Dioxide 32 BUN 13 Creatinine 1.07 Glucose 130 H Calcium 9.1 Liver Function 12/17/22 Range/Units 11:05 Total Bilirubin 0.5 (0.2-1.0) mg/dl AST 25 (13-39) U/L ALT 22 (7-52) U/L Alkaline Phosphatase 76 (34-104) U/L Albumin 4.2 (3.4-5.0) gm/dl Urine 12/17/22 Range/Units 12:07 Urine Color Yellow Urine Appearance Clear (Clear) Urine pH 6.5 (4.5-7.5) Ur Specific [place] 1.025 (1.000-1.030) Urine Protein 1+ H (Negative) Urine Glucose (UA) Negative (Negative) Diagnostic Findings Chest X-Ray 12/17/22 12:19 XR chest 2V PA/lateral HISTORY: 67 years-old Female weakness acute weakness COMPARISON: 11/07/2018 TECHNIQUE: PA and lateral views of the chest FINDINGS: Cardiomediastinal and hilar silhouettes are within normal limits. There is no pneumothorax, pleural effusion, airspace consolidation or pulmonary edema. Bones of the chest appear grossly intact. IMPRESSION: No acute process. ACT 112: Negative or not required by law. The above report was generated using voice recognition software. It may contain grammatical, syntax or spelling errors. Electronically signed by: George Espinosa M.D. 12/17/2022 12:51 PM Code Status & VTE Plan Code Status Full Code in the event of cardiac or respiratory arrest VTE Prophylaxis Plan VTE Prophylaxis will be ordered: Yes Supervising Physician Co-Signing Physician Notes Pt seen and examined by myself, Sandy Munroe MD on the day of service. Care was coordinated with CJ Ricketts. Please refer to her note for additional information. 67yoF with N/V/D and fever admitted with weakness and electrolyte abnormalities. CT abd/pelvis pending Campylobacter positive. Though typically self limiting, started on Azithromycin 500mg x 3 days given severity causing the need for hospitalization. Rocephin discontinued after one dose but continue to follow urine culture IV hydration, electrolyte repletion. PT/OT Otherwise as above.
[2022-12-17] MEDS: ACETAMINOPHEN 325 MG TAB PO PRN ×2 (14:12→21:02)
--- NOTE | 2022-12-17 14:14 | Emergency Department Note ---
ED Visit Note I have personally evaluated this patient examined her and reviewed the pertinent labs and data. I have discussed the case with Colin Quiles, the physician assistant professor of forestry and agree with the plan. Please refer to the PA note. This patient comes in after feeling ill since last night she has had chills she also had a fever. She had no cough or shortness of breath. We did extensive work-up her white count is mildly elevated although she is afebrile here. On my exam, she looks well however potassium was low at 2.7. I do think she needs to be admitted for repletion and further work-up to rule out infection and other etiologies for symptoms. We have consulted the [facility] hospitalist to see her in the ER for these measures. .
[2022-12-17] MEDS ORDERED: POTASSIUM CHLORIDE CRTAB 20 MEQ TABCR PO STA (14:21)
[2022-12-17] MEDS ORDERED: cefTRIAXone SODIUM 2,000 MG in DEXTROSE 5% 50 ML IV SCH (14:30)
[2022-12-17] MEDS: NSS + 20MEQ KCL 20 MEQ/1,000 ML BAG IV SCH (15:02)
[2022-12-17] MEDS ORDERED: PANTOprazole 40 MG TAB PO ONE (16:00)
[2022-12-17 19:06] LABS: Adenovirus F 40/41 PCR Not Detected (NotDetected); Astrovirus PCR Not Detected (NotDetected); Cryptosporidium PCR Not Detected (NotDetected); Cyclospora cayetanensis PCR Not Detected (NotDetected); Entamoeba histolytica PCR Not Detected (NotDetected); Enteroaggregative E.coli(EAEC) Not Detected (NotDetected); Enteropathogenic E.coli (EPEC) Not Detected (NotDetected); Enterotoxigenic E.coli (ETEC) Not Detected (NotDetected); Giardia lamblia PCR Not Detected (NotDetected); Norovirus GI/GII PCR Not Detected (NotDetected); Plesiomonas shigelloides PCR Not Detected (NotDetected); Rotavirus A PCR Not Detected (NotDetected); Salmonella PCR Not Detected (NotDetected); Sapovirus PCR Not Detected (NotDetected); Shiga-like Toxin E.coli (STEC) Not Detected (NotDetected); Shigella/Enteroinvasive E.coli Not Detected (NotDetected); Vibrio cholerae PCR Not Detected (NotDetected); Vibrio species PCR Not Detected (NotDetected); Yersinia enterocolitica PCR Not Detected (NotDetected)
[2022-12-17 19:24] LABS: Campylobacter PCR DETECTED (NotDetected)
[2022-12-17] MEDS ORDERED: AZITHROMYCIN 250 MG TAB PO ONE (19:50)
[2022-12-17] MEDS ORDERED: SIMETHICONE 80 MG CHEW PO PRN (19:50)
[2022-12-17] MEDS ORDERED: levoFLOXacin 750 MG TAB PO ONE (20:20)
[2022-12-17] MEDS ORDERED: OPTIRAY 320 100ml IV ONE (20:30)
[2022-12-17] MEDS: MIRTAZAPINE SOLTAB 15 MG PO SCH (21:02)
[2022-12-17] MEDS: LORazepam 1 MG TAB PO PRN (21:36)
--- NOTE | 2022-12-17 23:24 | CT Scan Report ---
Exam(s): CT ABDOMEN + PELVIS With Contrast IV Amt: 88ml EXAM: CT Abdomen and Pelvis With Intravenous Contrast CLINICAL HISTORY: Reason for exam: N/V/D with fever, Hx of colon cancer. TECHNIQUE: Axial computed tomography images of the abdomen and pelvis with intravenous contrast. Automated exposure control was utilized for the study. A dose lowering technique was utilized adhering to the principles of ALARA. CONTRAST: Patient received 88ml of IV contrast COMPARISON: No relevant prior studies available. FINDINGS: Lung bases: Unremarkable. No mass. No consolidation. ABDOMEN: Liver: Hepatic steatosis. Gallbladder and bile ducts: Unremarkable. No calcified stones. No ductal dilation. Pancreas: Unremarkable. No mass. No ductal dilation. Spleen: Unremarkable. No splenomegaly. Adrenals: Unremarkable. No mass. Kidneys and ureters: Unremarkable. No hydronephrosis or delayed nephrogram. Stomach and bowel: Circumferential wall thickening of the ascending colon and proximal transverse colon, with mild pericolonic fat stranding, consistent with mild colitis. No obstruction. PELVIS: Appendix: No findings to suggest acute appendicitis. Bladder: Unremarkable. No mass. Reproductive: Atrophy of the uterus. ABDOMEN and PELVIS: Intraperitoneal space: Unremarkable. No free air. No significant fluid collection. Bones/joints: Degenerative changes of the spine. No acute fracture. No dislocation. Soft tissues: Unremarkable. Vasculature: Atherosclerotic changes of the aorta. No abdominal aortic aneurysm. Lymph nodes: Unremarkable. No enlarged lymph nodes. IMPRESSION: Circumferential wall thickening of the ascending colon and proximal transverse colon, with mild pericolonic fat stranding, consistent with mild colitis. Electronically signed by: Ashvin Bustamante MD 12/17/22 23:23 PM
[2022-12-18] MEDS: NSS + 20MEQ KCL 20 MEQ/1,000 ML BAG IV SCH ×2 (02:29→12:31)
[2022-12-18] MEDS: ACETAMINOPHEN 325 MG TAB PO PRN (05:57)
[2022-12-18] MEDS: LORazepam 1 MG TAB PO PRN ×2 (05:57→20:09)
[2022-12-18 07:13] LABS: Hematocrit (blood only) 36.5 % (37.0-47.0); Hemoglobin 12.4 g/dl (12.0-16.0); Mean Corpuscular Hemoglobin 29.1 pg (25.0-34.0); Mean Corpuscular Volume 85.7 fL (80.0-100.0); Platelet Count 201 K/uL (130-400); RDW Coefficient of Variation 13.9 % (11.5-14.5); RDW Standard Deviation 43.7 fL (36.4-46.3); Red Blood Count 4.26 M/uL (4.20-5.40); White Blood Count 8.12 K/ul (4.8-10.8)
[2022-12-18 07:30] LABS: Albumin Globulin Ratio 1.2 (0.9-2); Albumin Level 3.4 gm/dl (3.4-5.0); BUN Creatinine Ratio 15.2 (10-20); Bilirubin,Total 0.3 mg/dl (0.2-1.0); Calcium 7.9 mg/dl (8.6-10.3); Est GFR (African American) 75.7 ml/min; Est GFR (Non-African American) 65.3 ml/min; Globulin 2.8 gm/dl (2.5-4.0); Phosphorus 2.4 mg/dl (2.5-4.9); Total Protein 6.2 gm/dl (6.0-8.3)
[2022-12-18] MEDS ORDERED: POTASSIUM CHLORIDE CRTAB 20 MEQ TABCR PO ONE (07:40)
[2022-12-18] MEDS: POTASSIUM CHLORIDE / WTR 10 MEQ/100 ML PLCT IV SCH ×2 (08:00→10:57)
[2022-12-18] MEDS: ENOXAPARIN INJ 40 MG/0.4 ML SYR SQ SCH (08:04)
[2022-12-18] MEDS: PANTOprazole 40 MG TAB PO SCH (08:05)
[2022-12-18] MEDS: OMEGA-3 (PURIFIED FISH OIL) 1 GM CAP PO SCH (08:05)
[2022-12-18] MEDS ORDERED: hydroCHLOROthiazide 25 MG TAB PO SCH (09:00)
[2022-12-18] MEDS ORDERED: AZITHROMYCIN 250 MG TAB PO SCH (09:00)
[2022-12-18] MEDS: POT PHOSPHATE MONOBASIC W/ SOD TAB PO SCH ×4 (10:56→20:09)
[2022-12-18] MEDS: levoFLOXacin 750 MG TAB PO SCH (12:31)
--- NOTE | 2022-12-18 13:21 | Hospitalist Progress Note ---
Date of Service December 18, 2022 Assessment & Plan (1) Weakness: (2) Nausea: (3) Hypertension: (4) Anxiety: (5) GERD (gastroesophageal reflux disease): (6) History of colon cancer: (7) Hypokalemia: Plan Patient is a 67 yr female who presents with fever, diarrhea, decreased appetite and nausea over past 24 hours. + UTI, started on Ceftriaxone. Hypokalemia 2.7; replacing PO and IV. H/O Colon CA 2015 s/p SBO and partial colectomy; No chemo or radiation; [facility]s at [facility]. . Gastroenteritis/Colitis due to Campylobacter Infection Ruled out UTI --CT ABD:Circumferential wall thickening of the ascending colon and proximal transverse colon, with mild pericolonic fat stranding, consistent with mild colitis. --Lactate 1.0 --Blood cultures: Pending --Stool culture positive for Campylobacter. --Stool for C. difficile negative --Urine Cx: Mixed skin raj --H/O azithromycin intolerance Continue levofloxacin Continue IV fluids Hypokalemia Hypophosphatemia Replete electrolytes as needed Monitor HTN: Hold HCTZ Monitor Depression and Anxiety: Continue Remeron Hold desvenlafaxine for now GERD: Continue PPI H/O Colon cancer: Dx: 2014 s/p SBO and partial colectomy No chemo or radiation Follows at [facility] [place] [facility]. DVT Px: Lovenox SQ Code Status: Full Code Admission and Anticipated Discharge Date Admission Date: December 17, 2022 Subjective Patient is seen and examined at bedside States having loose watery diarrhea Feels tired Denies any nausea, vomiting, abdominal pain, chest pain, dyspnea No other complaints Review of Systems Review of Systems: All systems reviewed & are unremarkable except as noted in Subjective Physical Exam Physical Exam: Physical Exam: Vitals signs as noted above General Appearance:Moderately built and nourished, no apparent distress Head: normocephalic, Atraumatic Eyes: normal inspection, EOMI Neck: supple, Trachea midline Respiratory/Chest: Normal breath sounds, CTA, No accessory muscle use Cardiovascular: S1, S2, No murmur Abdomen/GI:Soft, Non tender, Bowel sounds present Extremities/Musculoskeletal:normal inspection, no edema Neurologic/Psych:AAOX3, grossly no focal neurological deficits Skin: normal color, warm Results & Data Results & Data Vital Signs (Past 12 Hours) Vital Signs Temp Pulse Pulse Resp BP Pulse Ox O2 Del Method 12/18/22 11:42 36.6 C 71 16 124/65 96 Room Air 12/18/22 07:03 69 12/18/22 03:41 36.7 C 69 18 104/65 95 Room Air Laboratory Results Short CBC 12/18/22 Range/Units 06:07 WBC 8.12 (4.8-10.8) K/ul Hgb 12.4 (12.0-16.0) g/dl Hct 36.5 L (37.0-47.0) % Plt Count 201 (130-400) K/uL BMP 12/18/22 06:07 Sodium 141 Potassium 3.0 L Chloride 105 Carbon Dioxide 28 BUN 14 Creatinine 0.92 Glucose 83 Calcium 7.9 L Liver Function 12/18/22 Range/Units 06:07 Total Bilirubin 0.3 (0.2-1.0) mg/dl AST 23 (13-39) U/L ALT 20 (7-52) U/L Alkaline Phosphatase 60 (34-104) U/L Albumin 3.4 (3.4-5.0) gm/dl
[2022-12-18] MEDS: MIRTAZAPINE SOLTAB 15 MG PO SCH (20:09)
[2022-12-19 05:57] LABS: Hematocrit (blood only) 35.7 % (37.0-47.0); Hemoglobin 12.1 g/dl (12.0-16.0); Mean Corpuscular Hemoglobin 29.3 pg (25.0-34.0); Mean Corpuscular Hgb Conc 33.9 g/dL (32.0-36.0); Mean Corpuscular Volume 86.4 fL (80.0-100.0); Mean Platelet Volume 10.7 fL (9.4-12.4); Platelet Count 202 K/uL (130-400); RDW Coefficient of Variation 13.9 % (11.5-14.5); RDW Standard Deviation 44.2 fL (36.4-46.3); Red Blood Count 4.13 M/uL (4.20-5.40); White Blood Count 5.76 K/ul (4.8-10.8)
[2022-12-19 06:07] LABS: BUN Creatinine Ratio 14.4 (10-20); Creatinine Clr Calc Pharmacy 59.8 ml/min; Est GFR (Non-African American) 61.3 ml/min
[2022-12-19 06:08] LABS: Magnesium 1.8 mg/dl (1.7-2.4); Phosphorus 2.5 mg/dl (2.5-4.9)
[2022-12-19] MEDS: POT PHOSPHATE MONOBASIC W/ SOD TAB PO SCH ×4 (07:44→20:11)
[2022-12-19] MEDS: PANTOprazole 40 MG TAB PO SCH (07:44)
[2022-12-19] MEDS: ENOXAPARIN INJ 40 MG/0.4 ML SYR SQ SCH (07:45)
[2022-12-19] MEDS: OMEGA-3 (PURIFIED FISH OIL) 1 GM CAP PO SCH (07:45)
[2022-12-19] MEDS: levoFLOXacin 750 MG TAB PO SCH (10:07)
[2022-12-19] MEDS: ACETAMINOPHEN 325 MG TAB PO PRN (10:07)
[2022-12-19] MEDS: LACTATED RINGER'S 1,000 ML IV SCH (12:45)
--- NOTE | 2022-12-19 17:44 | Hospitalist Progress Note ---
Date of Service December 19, 2022 Assessment & Plan (1) Weakness: (2) Nausea: (3) Hypertension: (4) Anxiety: (5) GERD (gastroesophageal reflux disease): (6) History of colon cancer: (7) Hypokalemia: Plan Patient is a 67 yr female who presents with fever, diarrhea, decreased appetite and nausea over past 24 hours. + UTI, started on Ceftriaxone. Hypokalemia 2.7; replacing PO and IV. H/O Colon CA 2015 s/p SBO and partial colectomy; No chemo or radiation; Follows at [facility] [place] [facility]. . Gastroenteritis/Colitis due to Campylobacter Infection Ruled out UTI --CT ABD:Circumferential wall thickening of the ascending colon and proximal transverse colon, with mild pericolonic fat stranding, consistent with mild colitis. --Lactate 1.0 --Blood cultures: No growth to date --Stool culture positive for Campylobacter. --Stool for C. difficile negative --Urine Cx: Mixed skin raj --H/O azithromycin intolerance Continue levofloxacin Continue IV fluids Still has ongoing diarrhea Hypokalemia Hypophosphatemia Replete electrolytes as needed Monitor HTN: Hold HCTZ Monitor Depression and Anxiety: Continue Remeron Hold desvenlafaxine for now GERD: Continue PPI H/O Colon cancer: Dx: 2014 s/p SBO and partial colectomy No chemo or radiation Follows at [facility] [place] [facility]. DVT Px: Lovenox SQ Code Status: Full Code Admission and Anticipated Discharge Date Admission Date: December 17, 2022 Subjective Patient is seen and examined at bedside Continues to have diarrhea No new complaints Denies any nausea, vomiting, abdominal pain, chest pain, dyspnea Review of Systems Review of Systems: All systems reviewed & are unremarkable except as noted in Subjective Physical Exam Physical Exam: Physical Exam: Vitals signs as noted above General Appearance:Moderately built and nourished, no apparent distress Head: normocephalic, Atraumatic Eyes: normal inspection, EOMI Neck: supple, Trachea midline Respiratory/Chest: Normal breath sounds, CTA, No accessory muscle use Cardiovascular: S1, S2, No murmur Abdomen/GI:Soft, Non tender, Bowel sounds present Extremities/Musculoskeletal:normal inspection, no edema Neurologic/Psych:AAOX3, grossly no focal neurological deficits Skin: normal color, warm Results & Data Results & Data Vital Signs (Past 12 Hours) Vital Signs Temp Pulse Pulse Resp BP Pulse Ox O2 Del Method 12/19/22 15:56 36.9 C 71 18 135/81 97 Room Air 12/19/22 15:00 63 12/19/22 12:39 36.8 C 71 17 132/84 98 Room Air 12/19/22 07:04 56 L Laboratory Results Short CBC 12/19/22 Range/Units 05:33 WBC 5.76 (4.8-10.8) K/ul Hgb 12.1 (12.0-16.0) g/dl Hct 35.7 L (37.0-47.0) % Plt Count 202 (130-400) K/uL BMP 12/19/22 05:33 Sodium 142 Potassium 4.0 D Chloride 110 H Carbon Dioxide 28 BUN 14 Creatinine 0.97 Glucose 92 Calcium 8.0 L
[2022-12-19] MEDS: LORazepam 1 MG TAB PO PRN (19:33)
[2022-12-19] MEDS: MIRTAZAPINE SOLTAB 15 MG PO SCH (20:56)
--- NOTE | 2022-12-19 21:22 | Electrocardiogram Report ---
Test Reason : Blood Pressure : / mmHG Vent. Rate : 088 BPM Atrial Rate : 088 BPM P-R Int : 112 ms QRS Dur : 092 ms QT Int : 386 ms P-R-T Axes : 054 017 002 degrees QTc Int : 467 ms Poor data quality, interpretation may be adversely affected Normal sinus rhythm Nonspecific ST abnormality Abnormal ECG When compared with ECG of 07-NOV-2018 14:59, No significant change was found Confirmed by Elijah Cardoso ([id number]) on 12/19/2022 9:22:45 PM Referred By: REFERRED SELF Confirmed By:Elijah Cardoso
--- NOTE | 2022-12-19 22:01 | Electrocardiogram Report ---
Test Reason : Blood Pressure : / mmHG Vent. Rate : 067 BPM Atrial Rate : 067 BPM P-R Int : 116 ms QRS Dur : 096 ms QT Int : 416 ms P-R-T Axes : 044 014 -09 degrees QTc Int : 439 ms Normal sinus rhythm Nonspecific ST and T wave abnormality Abnormal ECG When compared with ECG of 07-NOV-2018 14:59, Nonspecific T wave abnormality now evident in Anterior leads Confirmed by Elijah Cardoso ([id number]) on 12/19/2022 10:01:00 PM Referred By: REFERRED SELF Confirmed By:Elijah Cardoso
[2022-12-19] MEDS ORDERED: ZOLPIDEM TARTRATE 5 MG TAB PO STA (23:18)
[2022-12-20] MEDS: LACTATED RINGER'S 1,000 ML IV SCH (03:31)
[2022-12-20] MEDS: LORazepam 1 MG TAB PO PRN (07:35)
[2022-12-20 07:46] LABS: BUN Creatinine Ratio 16.1 (10-20); Calcium 8.3 mg/dl (8.6-10.3); Creatinine Clr Calc Pharmacy 62.4 ml/min; Est GFR (African American) 74.7 ml/min; Est GFR (Non-African American) 64.5 ml/min; Potassium 3.8 mmol/L (3.5-5.1)
[2022-12-20] MEDS ORDERED: amLODIPine BESYLATE 5 MG TAB PO SCH (09:00)
[2022-12-20] MEDS: OMEGA-3 (PURIFIED FISH OIL) 1 GM CAP PO SCH (09:36)
[2022-12-20] MEDS: PANTOprazole 40 MG TAB PO SCH (09:37)
[2022-12-20] MEDS: ENOXAPARIN INJ 40 MG/0.4 ML SYR SQ SCH (09:37)
--- NOTE | 2022-12-20 13:18 | Hospitalist Progress Note ---
Date of Service December 20, 2022 Assessment & Plan (1) Weakness: (2) Nausea: (3) Hypertension: (4) Anxiety: (5) GERD (gastroesophageal reflux disease): (6) History of colon cancer: (7) Hypokalemia: Plan Patient is a 67 yr female who presents with fever, diarrhea, decreased appetite and nausea over past 24 hours. + UTI, started on Ceftriaxone. Hypokalemia 2.7; replacing PO and IV. H/O Colon CA 2015 s/p SBO and partial colectomy; No chemo or radiation; [facility]. . Gastroenteritis/Colitis due to Campylobacter Infection Ruled out UTI --CT ABD:Circumferential wall thickening of the ascending colon and proximal transverse colon, with mild pericolonic fat stranding, consistent with mild colitis. --Lactate 1.0 --Blood cultures: No growth to date --Stool culture positive for Campylobacter. --Stool for C. difficile negative --Urine Cx: Mixed skin raj --H/O azithromycin intolerance Continue levofloxacin Received IV fluids Diarrhea much improved Plan to discharge home today Hypokalemia Hypophosphatemia Replete electrolytes as needed Monitor HTN: Started on Amlodipine Resume HCTZ upon discharge Monitor Depression and Anxiety: Continue Remeron Resume desvenlafaxine upon discharge GERD: Continue PPI H/O Colon cancer: Dx: 2014 s/p SBO and partial colectomy No chemo or radiation Follows at [facility] [place] [facility]. DVT Px: Lovenox SQ Code Status: Full Code Admission and Anticipated Discharge Date Admission Date: December 17, 2022 Subjective Patient is seen and examined at bedside Doing well today Diarrhea much improved No new complaints Denies any nausea, vomiting, abdominal pain, chest pain, dyspnea BP better today Plan to discharge home today Review of Systems Review of Systems: All systems reviewed & are unremarkable except as noted in Subjective Physical Exam Physical Exam: Physical Exam: Vitals signs as noted above General Appearance:Moderately built and nourished, no apparent distress Head: normocephalic, Atraumatic Eyes: normal inspection, EOMI Neck: supple, Trachea midline Respiratory/Chest: Normal breath sounds, CTA, No accessory muscle use Cardiovascular: S1, S2, No murmur Abdomen/GI:Soft, Non tender, Bowel sounds present Extremities/Musculoskeletal:normal inspection, no edema Neurologic/Psych:AAOX3, grossly no focal neurological deficits Skin: normal color, warm Results & Data Results & Data Vital Signs (Past 12 Hours) Vital Signs Temp Pulse Pulse Resp BP BP Pulse Ox 12/20/22 11:21 36.6 C 64 18 138/79 97 12/20/22 07:30 50 L 12/20/22 08:42 36.8 C 89 16 143/78 H 97 12/20/22 08:03 36.9 C 70 17 163/102 H 97 12/20/22 04:07 36.9 C 67 18 160/91 H 98 O2 Del Method 12/20/22 11:21 Room Air 12/20/22 07:30 12/20/22 08:42 Room Air 12/20/22 08:03 Room Air 12/20/22 04:07 Room Air Laboratory Results BMP 12/20/22 06:59 Sodium 143 Potassium 3.8 Chloride 110 H Carbon Dioxide 28 BUN 15 Creatinine 0.93 Glucose 92 Calcium 8.3 L
--- NOTE | 2022-12-20 13:23 | Discharge Summary ---
Date of Service December 20, 2022 Admission HPI Per Admitting Provider Ms. Beavers is a 67-year-old female who presented to the [facility] ED today with complaints of " just not feeling well". She stated that around 12:00 yesterday she started to feel very tired and dizzy. She reports having a fever over the last 24 hours temperature ranging 101-102.8. She was febrile prior to coming to the ED today and took Tylenol. On arrival in the ED she was afebrile however when I evaluated her she her temperature was 39.6. Overall her appetite has been low over the past few days. She also reports having diarrhea that has started over the past 24 hours and reports that lately her stool has had more malodor presentation than usual. She denies hematochezia. Past medical history includes hypertension, depression, history of colon cancer for which she had a colectomy and no chemo or radiation was necessary, history of vertigo, and GERD. She does follow in the [facility] here at [facility]. Patient denies headache, dizziness, chest pain, palpitations nausea, vomiting, diarrhea, recent falls or trauma, abdominal pain, hematochezia, urinary frequency, bowel changes, visual or auditory changes. Patient was recently (a few wees ago) started on Pristiq and it appears that side effects include decreased appetite, nausea and diarrhea. I was able to evaluate Lisa at bedside and her admitted room and she was febrile 39.6. Patient otherwise did not appear toxic and was able to answer all questions appropriately. No abdominal tenderness or lower extremity swelling noted. Slight leukocytosis 12.2. Hypokalemic 2.7. Otherwise labs unremarkable. biofire negative for flu, COVID, and RSV. CXR negative for cardiopulmonary disease. Urinalysis suggesting of UTI. She is hemodynamically stable BP 146/85, heart rate 98, respiratory is 20 and is on room air 93%. Patient has a history of colon cancer diagnosed in 2015 status post SBO and partial colectomy. No chemo or radiation was needed however due to her history and bowel symptoms a full work-up is warranted. We will treat UTI with ceftriaxone and await blood, urine, and stool culture results. Patient reports that her is ill at home with COPD and he is unable to care for her. She is ultimately his caregiver. Patient will be admitted for further evaluation and management. Please see A/P for further details. Admission Exam Per Admitting Provider Physical Exam Physical Exam: Neuro: AAOx4, PERRLA, no aphagia, memory changes, CNII-XII grossly intact HEENT: head normocephalic, moist mucus membranes CV: S1/S2, (-) M/G/R, (-) edema, cap refill < 3 seconds Resp: Lungs CTA in all marin. On RA GI: Abdomen S/NT/ND, Ax4 bowel sounds, (-) CVA tenderness Musculoskeletal: 5/5 B/L UE strength, 5/5 B/L LE strength. No gait disturbance Skin: (-) rashes , (-) erythema. Psych: euthymic, but anxious mood Principal Diagnosis Colitis Hypokalemia Hypophosphatemia Hypertension Discharge Data Allergies Allergy/AdvReac Type Severity Reaction Status Date / Time azithromycin AdvReac Intermediate Nausea Verified 12/17/22 11:46 erythromycin base AdvReac Intermediate nausea,abd Unverified 12/17/22 11:46 pain Consultations 12/17/22 13:21 ED Decision to Admit Stat Procedures Performed Laboratory Results WBC 5.76 K/ul (4.8-10.8) 12/19/22 05:33 RBC 4.13 M/uL (4.20-5.40) L 12/19/22 05:33 Hgb 12.1 g/dl (12.0-16.0) 12/19/22 05:33 Hct 35.7 % (37.0-47.0) L 12/19/22 05:33 MCV 86.4 fL (80.0-100.0) 12/19/22 05:33 MCH 29.3 pg (25.0-34.0) 12/19/22 05:33 MCHC 33.9 g/dL (32.0-36.0) 12/19/22 05:33 RDW Std Deviation 44.2 fL (36.4-46.3) 12/19/22 05:33 RDW Coeff of Sven 13.9 % (11.5-14.5) 12/19/22 05:33 Plt Count 202 K/uL (130-400) 12/19/22 05:33 MPV 10.7 fL (9.4-12.4) 12/19/22 05:33 Immature Gran % (Auto) 0.6 % 12/17/22 11:05 Neut % (Auto) 88.8 % 12/17/22 11:05 Lymph % (Auto) 6.5 % 12/17/22 11:05 Milam % (Auto) 3.8 % 12/17/22 11:05 Eos % (Auto) 0.1 % 12/17/22 11:05 Baso % (Auto) 0.2 % 12/17/22 11:05 Neut # (Auto) 11.43 K/uL (1.40-6.50) H 12/17/22 11:05 Lymph # (Auto) 0.84 K/uL (1.2-3.4) L 12/17/22 11:05 Milam # (Auto) 0.49 K/uL (0.11-0.59) 12/17/22 11:05 Eos # (Auto) 0.01 K/uL (0-0.50) 12/17/22 11:05 Baso # (Auto) 0.03 K/uL (0-0.2) 12/17/22 11:05 Immature Gran # (Auto) 0.08 K/uL (0.01-0.20) 12/17/22 11:05 Sodium 143 mmol/L (136-145) 12/20/22 06:59 Potassium 3.8 mmol/L (3.5-5.1) 12/20/22 06:59 Chloride 110 mmol/L (98-107) H 12/20/22 06:59 Carbon Dioxide 28 mmol/L (21-32) 12/20/22 06:59 Anion Gap 5 (3-11) 12/20/22 06:59 BUN 15 mg/dl (6-23) 12/20/22 06:59 Creatinine 0.93 mg/dl (0.6-1.2) 12/20/22 06:59 Est Cr Clr Drug Dosing 62.4 ml/min 12/20/22 06:59 Est GFR ( Amer) 74.7 ml/min 12/20/22 06:59 Est GFR (Non-Af Amer) 64.5 ml/min 12/20/22 06:59 BUN/Creatinine Ratio 16.1 (10-20) 12/20/22 06:59 Glucose 92 mg/dl (70-99(Fasting)) 12/20/22 06:59 Lactate 1.0 mmol/L (0.4-2.0) 12/17/22 13:51 Calcium 8.3 mg/dl (8.6-10.3) L 12/20/22 06:59 Phosphorus 2.5 mg/dl (2.5-4.9) 12/19/22 05:33 Magnesium 1.8 mg/dl (1.7-2.4) 12/19/22 05:33 Total Bilirubin 0.3 mg/dl (0.2-1.0) 12/18/22 06:07 AST 23 U/L (13-39) 12/18/22 06:07 ALT 20 U/L (7-52) 12/18/22 06:07 Alkaline Phosphatase 60 U/L (34-104) 12/18/22 06:07 Total Protein 6.2 gm/dl (6.0-8.3) 12/18/22 06:07 Albumin 3.4 gm/dl (3.4-5.0) 12/18/22 06:07 Globulin 2.8 gm/dl (2.5-4.0) 12/18/22 06:07 Albumin/Globulin Ratio 1.2 (0.9-2) 12/18/22 06:07 Urine Color Yellow 12/17/22 12:07 Urine Appearance Clear (Clear) 12/17/22 12:07 Urine pH 6.5 (4.5-7.5) 12/17/22 12:07 Ur Specific Armstrong 1.025 (1.000-1.030) 12/17/22 12:07 Urine Protein 1+ (Negative) H 12/17/22 12:07 Urine Glucose (UA) Negative (Negative) 12/17/22 12:07 Urine Ketones Trace (Negative) H 12/17/22 12:07 Urine Blood Negative (Negative) 12/17/22 12:07 Urine Nitrite Negative (Negative) 12/17/22 12:07 Urine Bilirubin Negative (Negative) 12/17/22 12:07 Urine Urobilinogen Negative (Negative) 12/17/22 12:07 Ur Leukocyte Esterase 1+ (Negative) H 12/17/22 12:07 Urine WBC (Auto) 10-30 /hpf (0-5) H 12/17/22 12:07 Urine RBC (Auto) 5-10 /hpf (0-4) H 12/17/22 12:07 U Hyaline Cast (Auto) 1-5 /lpf (0-5) 12/17/22 12:07 U Epithel Cells (Auto) >30 /lpf (0-5) H 12/17/22 12:07 Urine Bacteria (Auto) Negative (Negative) 12/17/22 12:07 Stool Occult Bld Scrn Negative (Negative) 12/17/22 17:30 Stl C. cayetanensis PCR Not Detected (NotDetected) 12/17/22 17:30 Stool Rotavirus A PCR Not Detected (NotDetected) 12/17/22 17:30 Stl Adenov F 40/41 PCR Not Detected (NotDetected) 12/17/22 17:30 Stool Astrovirus (PCR) Not Detected (NotDetected) 12/17/22 17:30 Stool Campylobacter PCR DETECTED (NotDetected) A* 12/17/22 17:30 Stl C. diff Tox B Gene Negative Cdiff Gene (Neg) 12/17/22 17:30 Stool Cryptosporidium PCR Not Detected (NotDetected) 12/17/22 17:30 Stl E.coli Shiga Tox PCR Not Detected (NotDetected) 12/17/22 17:30 Stl Enterotoxigenic E PCR Not Detected (NotDetected) 12/17/22 17:30 Stool EPEC (PCR) Not Detected (NotDetected) 12/17/22 17:30 Stool EAEC (PCR) Not Detected (NotDetected) 12/17/22 17:30 Stl E. histolytica PCR Not Detected (NotDetected) 12/17/22 17:30 Stool Giardia Lamblia PCR Not Detected (NotDetected) 12/17/22 17:30 Stool Salmonella PCR Not Detected (NotDetected) 12/17/22 17:30 Stool Sapovirus (PCR) Not Detected (NotDetected) 12/17/22 17:30 Stl P. shigelloides PCR Not Detected (NotDetected) 12/17/22 17:30 Stl Shigella/EIEC PCR Not Detected (NotDetected) 12/17/22 17:30 St Y.enterocolitica PCR Not Detected (NotDetected) 12/17/22 17:30 Stool Vibrio (PCR) Not Detected (NotDetected) 12/17/22 17:30 Stl Vibrio cholerae PCR Not Detected (NotDetected) 12/17/22 17:30 Stl Norovirus GI/GII PCR Not Detected (NotDetected) 12/17/22 17:30 SARS-CoV-2 (PCR) NEGATIVE (Negative) 12/17/22 10:59 Influenza Type A (PCR) Negative (Neg) 12/17/22 10:59 Influenza Type B (PCR) Negative (Neg) 12/17/22 10:59 RSV (RT-PCR) Negative (Neg) 12/17/22 10:59 Impressions Chest X-Ray 12/17/22 12:19 XR chest 2V PA/lateral HISTORY: 67 years-old Female weakness acute weakness COMPARISON: 11/07/2018 TECHNIQUE: PA and lateral views of the chest FINDINGS: Cardiomediastinal and hilar silhouettes are within normal limits. There is no pneumothorax, pleural effusion, airspace consolidation or pulmonary edema. Bones of the chest appear grossly intact. IMPRESSION: No acute process. ACT 112: Negative or not required by law. The above report was generated using voice recognition software. It may contain grammatical, syntax or spelling errors. Electronically signed by: George Espinosa M.D. 12/17/2022 12:51 PM Abdomen/Pelvis CT 12/17/22 15:42 Exam(s): CT ABDOMEN + PELVIS With Contrast IV Amt: 88ml EXAM: CT Abdomen and Pelvis With Intravenous Contrast CLINICAL HISTORY: Reason for exam: N/V/D with fever, Hx of colon cancer. TECHNIQUE: Axial computed tomography images of the abdomen and pelvis with intravenous contrast. Automated exposure control was utilized for the study. A dose lowering technique was utilized adhering to the principles of ALARA. CONTRAST: Patient received 88ml of IV contrast COMPARISON: No relevant prior studies available. FINDINGS: Lung bases: Unremarkable. No mass. No consolidation. ABDOMEN: Liver: Hepatic steatosis. Gallbladder and bile ducts: Unremarkable. No calcified stones. No ductal dilation. Pancreas: Unremarkable. No mass. No ductal dilation. Spleen: Unremarkable. No splenomegaly. Adrenals: Unremarkable. No mass. Kidneys and ureters: Unremarkable. No hydronephrosis or delayed nephrogram. Stomach and bowel: Circumferential wall thickening of the ascending colon and proximal transverse colon, with mild pericolonic fat stranding, consistent with mild colitis. No obstruction. PELVIS: Appendix: No findings to suggest acute appendicitis. Bladder: Unremarkable. No mass. Reproductive: Atrophy of the uterus. ABDOMEN and PELVIS: Intraperitoneal space: Unremarkable. No free air. No significant fluid collection. Bones/joints: Degenerative changes of the spine. No acute fracture. No dislocation. Soft tissues: Unremarkable. Vasculature: Atherosclerotic changes of the aorta. No abdominal aortic aneurysm. Lymph nodes: Unremarkable. No enlarged lymph nodes. IMPRESSION: Circumferential wall thickening of the ascending colon and proximal transverse colon, with mild pericolonic fat stranding, consistent with mild colitis. Electronically signed by: Ashvin Bustamante MD 12/17/22 23:23 PM Ordered Studies 12/17/22 15:42 CT Abd and Pelvis [CT abd pelvis IV con only] Urgent Hospital Course (1) Weakness: (2) Nausea: (3) Hypertension: (4) Anxiety: (5) GERD (gastroesophageal reflux disease): (6) History of colon cancer: (7) Hypokalemia: Plan Patient is a 67 yr female who presents with fever, diarrhea, decreased appetite and nausea over past 24 hours. + UTI, started on Ceftriaxone. Hypokalemia 2.7; replacing PO and IV. H/O Colon CA 2015 s/p SBO and partial colectomy; No chemo or radiation; [facility]. . Gastroenteritis/Colitis due to Campylobacter Infection Ruled out UTI --CT ABD:Circumferential wall thickening of the ascending colon and proximal transverse colon, with mild pericolonic fat stranding, consistent with mild colitis. --Lactate 1.0 --Blood cultures: No growth to date --Stool culture positive for Campylobacter. --Stool for C. difficile negative --Urine Cx: Mixed skin raj --H/O azithromycin intolerance Continue levofloxacin Received IV fluids Diarrhea much improved Plan to discharge home today Hypokalemia Hypophosphatemia Replete electrolytes as needed Monitor HTN: Started on Amlodipine Resume HCTZ upon discharge Monitor Depression and Anxiety: Continue Remeron Resume desvenlafaxine upon discharge GERD: Continue PPI H/O Colon cancer: Dx: 2014 s/p SBO and partial colectomy No chemo or radiation Follows at [facility]. DVT Px: Lovenox SQ Code Status: Full Code Total Time Total Time Spent Total Time Spent (In Minutes): 55 minutes Discharge Plan Discharge Items Patient Disposition: Home - Self-Care Reason For Visit: NAUSEA Discharge Diagnosis: Colitis Hypokalemia Hypophosphatemia Hypertension Activity: Per Instructions section Exercise/Sports: Gradually increase as tolerated Non-emergency contact: Primary Care Provider Call non-emergency contact if: you have any medication questions, your symptoms worsen, your pain is concerning for you and you have a fever Follow-up/Referrals: Vivi Rosenthal MD [Primary Care Provider] - (Date & Time 12/26/2022 3:20 PM Provider Constanza Camacho PA-C Department [facility] ) Diet: Heart Healthy Addtl Attending Provider Instructions: Follow-up with your primary care physician on 12/26/2022 3:20 PM -- Completed antibiotic course of levofloxacin as prescribed. -- Your final blood culture results are pending at the time of discharge. Follow-up with your physician for results. --- Monitor your blood pressure regularly at home and discuss with your physician for further adjustment of blood pressure medications as needed. Seek immediate medical attention if your symptoms reoccur or worsen Please take all medications as instructed on discharge list below. Please call if you have any questions or problems. You can reach a [facility] hospitalist on duty at [facility] 24 hours a day by calling [phone] Pending Studies at Discharge: Yes Studies:: Blood Cultures Stand-Alone Forms: My [facility], Smoking Cessation Medications and DC Order Prescriptions: New amlodipine [Norvasc] 5 mg Tablet 2.5 mg PO QAM Qty: 30 1RF Continued potassium chloride 10 mEq Tablet Extended Release 10 meq PO QAM omeprazole 40 mg Capsule,Delayed Release(Dr/Ec) 40 mg PO QAM lorazepam 1 mg tablet 1 mg PO BID PRN (Reason: Anxiety) mirtazapine 45 mg Tablet 45 mg PO HS Fish Oil 1,000 mg Capsule 1,000 cap PO DAILY desvenlafaxine succinate [Pristiq] 25 mg Tablet Extended Release 24 Hr 25 mg PO DAILY Held hydrochlorothiazide 25 mg Tablet 25 mg PO QAM Hold Instructions: Resume on 12/22/22. Discharge Orders: Discharge Order (Routine); Ordered 12/20/22 Ordered By: Cas Brooke Admission Data Admit Date/Time: 12/17/22 13:23 Attending Provider: Cas Brooke Admit Provider: Sandy Munroe Primary Care Provider: Vivi Rosenthal Other Providers: Sandy Munroe
== END 2022-12-20 16:28 | disposition home or self-care (01) | DRG 373 ==
LOC: ED 10:10 → 2N 13:23 → SUATTDRO 13:23 → 2N 13:51